=== PATIENT | female | born 1965 | race Caucasian/White ===

== ENCOUNTER 2016-12-10 10:46 | Emergency (ER) | payer SELFPAY ==
[~2016-12-10] VITALS: Ht 170.2 cm; Wt 96.1 kg
[~2016-12-10 10:46] MED LIST: ACET650S13 RC; ALPR0.5T3; ASPI-84; BACL10TA PO; CLCX100C PO; CRS350T PO; CYCL10TA9 PO; DCS100C PO; DICY10CA59 PO; ETHI1TAB16 PO; Estradiol PO; GABA100C PO; HYDR-34 PO; HYDR-3720 PO; HYDR-508 PO; IBUP200C PO; IBUP400T22 PO; Ibuprofen PO; LOPE2TAB7 PO; LRZ1T PO; MELO-198 PO; MELO15TA14; MOBIC; MULT1CAP27 PO; ORPH100T PO; OXYC-12 PO; TIZA6CAP PO; TRAM50TA2 PO; VITA400T9 PO; lidocaine patch
--- NOTE | 2016-12-10 10:55 | ED Fall/Injury ---
General Stated Complaint: FALL LEFT SHOULDER/LOWER BACK PAIN Source: patient Exam Limitations: no limitations History of Present Illness Time seen by provider: 10:55 Initial Comments To ER with reports of a fall and subsequent pain. This occurred one month ago in her bathtub. She landed on her left shoulder and she felt something tear in the anterior left upper arm. She is now unable to flex the arm at the elbow for the past month or move her arm at the shoulder. She also has low back pain that radiates down the right leg. She has a history of lumbar surgery remotely. No loss of bowel or bladder control. No saddle anesthesia. No fevers or chills. Occurred: other (1 month ago) Severity: moderate Injuries/Pain Location: back Context: slipped Loss of Consciousness: no loss of consciousness Allergies and Home Medications Allergies Coded Allergies: NKANo Known Allergies (Unverified Allergy, Unknown, 05/18/14) Home Medications Acetaminophen 500 Mg Tablet, 500 MG PO Q6H, (Reported) Diphenhydramine HCl 25 Mg Capsule, 25 MG PO DAILY, (Reported) Multivitamin 1 Each Tablet, 1 EACH PO DAILY, (Reported) Constitutional: see HPI Eyes: No Symptoms Reported Ears, Nose, Mouth, Throat: no symptoms reported Respiratory: no symptoms reported Cardiovascular: no symptoms reported Genitourinary: no symptoms reported Musculoskeletal: see HPI, back pain Skin: no symptoms reported Psychiatric/Neurological: No Symptoms Reported Past Zmqawcx-Eqdaaa-Rpybfy Hx Patient Social History Recent Foreign Travel: No Contact w/Someone Who Travel: No Immunizations Up To Date Date of Pneumonia Vaccine: Jun 10, 2009 Surgeries HX Surgeries: Yes (NECK FUSION SX, ANT/POST REPAIR WITH HYST.) Respiratory Hx Respiratory Disorders: No Cardiovascular Hx Cardiac Disorders: No Neurological Hx Neurological Disorders: Yes (SPINAL INJURY) Reproductive System Hx Reproductive Disorders: No Genitourinary Hx Genitourinary Disorders: No Gastrointestinal Hx Gastrointestinal Disorders: Yes Gastrointestinal Disorders: Chronic Diarrhea Musculoskeletal Hx Musculoskeletal Disorders: Yes Musculoskeletal Disorders: Arthritis, Chronic Back Pain Endocrine Hx Endocrine Disorders: No HEENT HX ENT Disorders: No Cancer Hx Cancer: No Psychosocial Hx Psychiatric Problems: Yes Behavioral Health Disorders: Anxiety, Depression Integumentary HX Skin/Integumentary Disorder: No Blood Transfusions Hx Blood Disorders: No Family Medical History Family Medial History: Alcoholism 19 FATHER 19 MOTHER G8 SISTER Alzheimer's disease 19 MOTHER Arthritis 19 FATHER 19 MOTHER G8 SISTER Cardiovascular disease 19 FATHER 19 MOTHER G8 SISTER Dementia 19 MOTHER Hypertension 19 FATHER 19 MOTHER G8 SISTER Thyroid disease 19 FATHER No Family History of: AIDS Abdominal aortic aneurysm Jett's disease Asthma Cancer of mouth Cataracts Colon cancer Completed stroke Congenital disease Congenital heart disease Diabetes mellitus Kidney disease Myocardial infarction Parkinson's disease Prostate cancer Psychosocial problem Respiratory disorder Seizure disorder Severe allergy Physical Exam Vital Signs Vital Sign - Last 12Hours 12/10/16 10:57 Temp 98.0 Pulse 116 Resp 20 B/P (MAP) 160/117 Pulse Ox 96 Capillary Refill : General Appearance: WD/WN, no apparent distress HEENT: PERRL/EOMI, normal ENT inspection Neck: non-tender, full range of motion Respiratory: normal breath sounds, no respiratory distress, no accessory muscle use Gastrointestinal: normal bowel sounds, non tender, soft Extremities: other (she is unable to flex the arm at the elbow due to pain over the biceps. There is no bruising over this region or erythema) Neurologic/Psychiatric: alert, normal mood/affect, oriented x 3 Skin: normal color, warm/dry Savannah Coma Score Best Eye Response: (4) Open Spontaneously Best Verbal Response: (5) Oriented Best Motor Response: (6) Obeys Commands Loulou Total: 15 Progress/Results/Core Measures Results/Orders My Orders Orders - LUCAS RASMUSSEN APRN Ketorolac Injection (Toradol Injection) (12/10/16 11:00) Orphenadrine Injection (Norflex Injectio (12/10/16 11:00) Lumbar Spine - 2-3 Views (12/10/16 10:54) Metoprolol Tartrate (Ir) Tab (Lopressor (12/10/16 11:00) Medications Given in ED Current Medications Medications Dose Ordered Sig/Yesenai Route Start Time Stop Time Status Last Admin Dose Admin Ketorolac Tromethamine 60 mg ONCE ONCE IM 12/10/16 11:00 12/10/16 11:01 DC 12/10/16 11:11 60 MG Metoprolol Tartrate 25 mg ONCE ONCE PO 12/10/16 11:00 12/10/16 11:01 DC 12/10/16 11:10 25 MG Orphenadrine Citrate 60 mg ONCE ONCE IM 12/10/16 11:00 12/10/16 11:01 DC 12/10/16 11:10 60 MG Vital Signs/I&O Vital Sign - Last 12Hours 12/10/16 10:57 Temp 98.0 Pulse 116 Resp 20 B/P (MAP) 160/117 Pulse Ox 96 Diagnostic Imaging Diagonstic Imaging: Xray Comments NAME: VIN REARDON [facility] REC#: [id number] PT STATUS: REG ER : 1965 PHYSICIAN: LUCAS RASMUSSEN APRN ADMIT DATE: 12/10/16/ER Draft Date of Exam:12/10/16 LUMBAR SPINE - 2-3 VIEWS 3 views of the lumbar spine. INDICATION: Fall. FINDINGS: The alignment of the posterior spinal line is satisfactory. The vertebral body heights are preserved. There is moderate disc height loss at L3-L4, L4-L5, and L5-S1. No significant posterior osteophytes. There are mild anterior osteophytes seen at multiple levels. SI joints appear unremarkable. There are surgical clips in the upper right side of the abdomen. IMPRESSION: Lower lumbar spine disc degenerative changes. Dictated on workstation # [id number] Dict: 12/10/16 1133 Trans: 12/10/16 1136 LESLY [id number] Interpreted by: NENA SÁNCHEZ MD Electronically signed by: Departure Impression Impression: Primary Impression: Lumbar sprain Additional Impression: Biceps tendon tear Disposition: 01 HOME, SELF-CARE Condition: Stable Departure-Patient Inst. Decision time for Depature: 10:57 Referrals: JYOTHI GOYAL JONATHAN MD IPSEN, BRIAN J MD MCNEMAR, MARK E DO NO,LOCAL PHYSICIAN (PCP) Primary Care Physician NAMITA CISNEROS MD Patient Instructions: Biceps Tendinopathy Add. Discharge Instructions: 1. Call one of the physicians listed to make an appointment to be seen for further evaluation of your arm pain 2. Medication as directed 3. LUCAS RASMUSSEN APRN Dec 10, 2016 10:55
[2016-12-10] MEDS ORDERED: NAPR500T PO (10:59)
[2016-12-10] MEDS ORDERED: flexeril PO (10:59)
[2016-12-10] MEDS ORDERED: ORPHENADRINE 60 MG/2 ML (NORFLEX) AMP IM ONE (11:00)
[2016-12-10] MEDS ORDERED: meTOprolol TARTRATE 25 MG (LOPRESSOR) TABLET PO ONE (11:00)
[2016-12-10] MEDS ORDERED: KETOROLAC 60 MG/2 ML VIAL IM ONE (11:00)
[2016-12-10] MEDS ORDERED: DIPH25CA79 PO (11:06)
[2016-12-10] MEDS ORDERED: ACET-2267 PO (11:06)
[2016-12-10] MEDS ORDERED: MULT-974 PO (11:06)
--- NOTE | 2016-12-10 11:37 | Diagnostic Imaging Report ---
3 views of the lumbar spine. INDICATION: Fall. FINDINGS: The alignment of the posterior spinal line is satisfactory. The vertebral body heights are preserved. There is moderate disc height loss at L3-L4, L4-L5, and L5-S1. No significant posterior osteophytes. There are mild anterior osteophytes seen at multiple levels. SI joints appear unremarkable. There are surgical clips in the upper right side of the abdomen. IMPRESSION: Lower lumbar spine disc degenerative changes. Dictated by: Dictated on workstation # [id number]
[2016-12-10 11:54] VITALS: BP 142/97
--- OUTSIDE RECORDS SUMMARY | 2016-12-13 08:43 | XMS REPORT | Continuity of Care Document ---
Author Author [facility] Organization [facility] Address Unknown Phone Unavailable Allergies Active Description Code Type Severity Reaction Onset Reported/Identified Relationship to Patient Clinical Status Yes NKANo Known Allergies NKA Miscellaneous Allergy Unknown N/ A 05/18/2014 Medications Problems Date Dx Coded Attending Type Code Diagnosis Diagnosed By 12/18/2010 Ot 386.11 12/18/2010 Ot 401.9 12/18/2010 Ot 780.4 11/23/2011 Ot V45.4 11/23/2011 Ot V57.1 11/23/2011 Ot V58.49 11/10/2013 MAN ROJO MD Ot 724.2 11/10/2013 MAN ROJO MD Ot 847.2 11/10/2013 MAN ROJO MD Ot E000.8 11/10/2013 MAN ROJO MD Ot E849.0 11/10/2013 MNA ROJO MD Ot E928.9 02/01/2014 ISADORA MCALLISTER, AUDREY Adamson Ot 786.50 02/01/2014 ISADORA MCALLISTER, AUDREY Adamson Ot 786.59 05/19/2014 MARICARMEN MCALLISTER, DARIUSZ Sampson Ot 614.6 05/19/2014 MARICARMEN MCALLISTER, DARIUSZ Sampson Ot 617.3 05/19/2014 MARICARMEN MCALLISTER, DARIUSZ Sampson Ot 617.4 05/19/2014 MARICARMEN MCALLISTER, DARIUSZ Sampson Ot 617.5 05/19/2014 MARICARMEN MCALLISTER, DARIUSZ Sampson Ot 617.8 05/19/2014 MARICARMEN MCALLISTER, DARIUSZ Sampson Ot 620.0 05/19/2014 MARICARMEN MCALLISTER, DARIUSZ Sampson Ot 620.2 08/22/2014 LAKEISHA MCALLISTER, PERCY Ot 455.0 08/22/2014 LAKEISHA MCALLISTER, PERCY Ot 455.3 08/22/2014 LAKEISHA MCALLISTER, PERCY Ot 562.10 08/27/2014 WINTER HENAO Ot 719.41 08/27/2014 MARICARMEN MCALLISTER, DARIUSZ Sampson Ot V76.12 08/27/2014 MARICARMEN MCALLISTER, DARIUSZ Sampson Ot 285.9 08/27/2014 MARICARMEN MCALLISTER, DARIUSZ Sampson Ot 620.2 08/27/2014 MARICARMEN MCALLISTER, DARIUSZ Sampson Ot 625.9 08/27/2014 MARICARMEN MCALLISTER, DARIUSZ Sampson Ot V72.63 08/27/2014 MARICARMEN MCALLISTER, DARIUSZ Sampson Ot V74.8 08/27/2014 LAKEISHA MCALLISTER, PERCY Ot V72.84 02/01/2015 CLAUDIA DO, SHIRA Baldwin Ot 717.6 02/01/2015 CLAUDIA DO, SHIRA Denny Ot 719.46 03/05/2015 CLAUDIA DO, SHIRA Denny Ot 717.6 03/05/2015 CLAUDIA DO, SHIRA Denny Ot 719.46 04/08/2015 CLAUDIA DO, SHIRA Denny Ot 717.43 04/08/2015 CLAUDIA DO, SHIRA Denny Ot 717.7 06/13/2015 YUSUF BUTLER APRN Ot 611.72 09/02/2015 HETERYUSUF APRN Ot 611.72 09/02/2015 CLAUDIA DO, SHIRA Baldwin Ot 717.6 09/02/2015 CLAUDIA DO, SHIRA Denny Ot 719.46 09/12/2015 CLAUDIA DO, SHIRA Denny Ot 717.6 09/12/2015 CLAUDIA DO, SHIRA Denny Ot 719.46 09/12/2015 HETER YUSUF Kathi BRAGG Ot 611.72 Procedures Results Encounters ACCT No. Visit Date/Time Discharge Status Pt. Type Provider Facility Loc./Unit Complaint [id number] 07/25/2015 14:41:00 2014 23:59:59 CLS Outpatient FRANSISCO MINOR [facility] QUICK [id number] 05/13/2015 14:16:00 2014 23:59:59 CLS Outpatient YUSUF BUTLER APRN [facility] RAD [id number] 04/08/2015 09:20:00 2014 14:40:00 DIS Outpatient SHIRA TAYLOR DO [facility] [id number] 04/03/2015 10:40:00 2014 23:59:59 CLS Outpatient SHIRA TAYLOR DO [facility] PREOP [id number] 02/01/2015 09:29:00 2014 23:59:59 CLS Outpatient SHIRA TAYLOR DO [facility] RAD [id number] 08/22/2014 08:01:00 2013 11:30:00 DIS Outpatient PERCY SUAZO MD [facility] [id number] 08/15/2014 05:49:00 2013 23:59:59 CLS Outpatient PERCY SUAZO MD [facility] PREOP [id number] 05/18/2014 10:56:00 2013 09:45:00 DIS Outpatient DARIUSZ HERNADEZ MD [facility] [id number] 05/15/2014 15:05:00 2013 23:59:59 CLS Outpatient DARIUSZ HERNADEZ MD [facility] RAD [id number] 05/11/2014 10:28:00 2013 23:59:59 CLS Outpatient DARIUSZ HERNADEZ MD [facility] PREOP [id number] 02/01/2014 17:41:00 2013 20:17:00 DIS Emergency AUDREY MUIR MD [facility] ER [id number] 11/10/2013 05:52:00 2013 07:54:00 DIS Emergency MAN ROJO MD [facility] ER [id number] 07/24/2013 15:54:00 2012 23:59:59 CLS Outpatient WINTER HENAO [facility] RAD [id number] 08/03/2016 14:46:00 ACT Outpatient LEISA WAGNER APRN [facility] QUICK LT FOOT XRAY [id number] 07/31/2016 10:43:00 PEN Preadlg HOWARD MD, CHIARA [facility] REHAB LOW BACK PAIN [id number] 11/17/2011 12:57:00 Document Registration [id number] 12/18/2010 15:08:00 Document Registration
== END 2016-12-10 11:54 | disposition home or self-care (01) ==
LOC: EDUNIT# 10:46 → ER 10:49
DX: S33.5XXA Sprain of ligaments of lumbar spine, initial encounter (principal); S46.812A Strain of other muscles, fascia and tendons at shoulder and upper arm level, left arm, initial encounter; M47.816 Spondylosis without myelopathy or radiculopathy, lumbar region; W18.2XXA Fall in (into) shower or empty bathtub, initial encounter; Y92.012 Bathroom of single-family (private) house as the place of occurrence of the external cause; Y99.8 Other external cause status
CPT/HCPCS: 72100; 96372; 99281

== ENCOUNTER → 2017-08-09 | Outpatient (CLI) | payer OTHER ==
[~2017-08-09] MED LIST changes: +ACET-2267 PO; +DIPH25CA79 PO; +MULT-974 PO; +NAPR500T PO; +flexeril PO
--- NOTE | 2017-08-11 09:44 | Diagnostic Imaging Report ---
EXAMINATION: Bilateral screening mammogram 2D views with tomosynthesis. The current study was also evaluated with a Computer Aided Detection (CAD) system. INDICATION: Screening. PERSONAL HISTORY: No current complaints stated on the questionnaire. COMPARISON: 05/13/2015. FINDINGS: The breasts are composed of heterogeneously dense parenchyma which may decrease mammographic sensitivity. Benign-appearing calcifications are seen. Allowing for technique and positional differences, no suspicious change is seen. IMPRESSION: No significant change. ACR BI-RADS Category 2: Benign findings. Result letter will be mailed to the patient. Note: At least 10% of breast cancer is not imaged by mammography. Dictated by: Dictated on workstation # [id number]
== END ==
LOC: RAD 11:34
PROVIDERS: ATTEND Nurse Practitioner Family
DX: Z12.31 Encounter for screening mammogram for malignant neoplasm of breast (principal)
CPT/HCPCS: 77067

== ENCOUNTER 2018-05-29 13:20 | Emergency (ER) | payer OTHER ==
[~2018-05-29] VITALS: Ht 172.7 cm; Wt 90.7 kg
[~2018-05-29 13:20] MED LIST changes: +NAPR-1071 PO; -NAPR500T PO
--- OUTSIDE RECORDS SUMMARY | 2018-05-29 13:26 | XMS REPORT ---
Author Author DOROTHY CONNOLLY Organization [facility] Address [address] 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 Active 445365234 Problem Anxiety F41.9 Active 89262940 Problem Trigger ring finger of right hand M65.341 Active 500731919 Problem Essential hypertension I10 Active 62246449 Problem Breast mass, left N63 Active 90676824566127736 Problem BMI 34.0-34.9,adult Z68.34 Active 297625531 Problem Chronic gastritis without bleeding, unspecified gastritis type K29.50 Active 8197212 ALLERGIES No Known Allergies ENCOUNTERS Encounter Location Date Diagnosis [facility] [address] [phone] Jun, [facility] [id number] [place] [phone] Apr, Capsulitis of right foot M77.51 and Right foot pain M79.671 [facility] [id number] [place] [address] Apr, Trigger ring finger of right hand M65.341 and Trigger middle finger of right hand M65.331 [facility] [id number] [place] [address] Feb, Anxiety F41.9 and Trigger ring finger of right hand M65.341 [facility] [id number] [place] [id number] January, Dental examination Z01.20 and Dental caries K02.9 [facility] [id number] [place] [address] January, [place] [address] [address] January, Right foot pain M79.671 [place] [id number] [place] [address] Oct, Post-traumatic osteoarthritis, 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 ; BMI 34.0-34.9,adult Z68.34 and Breast mass, left N63 [place] [address] [address] Jul, [place] [address] [address] Jul, Screening breast examination Z12.31 [facility] [address] [id number] Jun, Dental examination Z01.20 [place] [id number] [place] [address] May, Chronic gastritis without bleeding, unspecified gastritis type K29.50 and Secondary multiple arthritis M15.3 [place] [id number] [place] [address] May, Chronic gastritis without bleeding, unspecified gastritis type K29.50 ; Essential hypertension I10 ; Breast mass, left N63 ; Post- traumatic osteoarthritis, 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 and Secondary multiple arthritis M15.3 [place] [id number] [place] [phone] May, [facility] [address] [phone] January, Abscess L02.91 IMMUNIZATIONS No Known Immunizations SOCIAL HISTORY Never Assessed REASON FOR VISIT Anxiety with stress and blood pressure. PT also has concerns with cysts in the palm on her hand-Cades MA PLAN OF CARE Activity Details Follow Up 4 Weeks Reason:anxiety VITAL SIGNS Height 67.5 in 2018-03-14 Weight 223.3 lbs 2018-03-14 Temperature 98.3 degrees Fahrenheit 2018-03-14 Heart Rate 82 bpm 2018-03-14 Respiratory Rate 20 2018-03-14 BMI 34.45 kg/m2 2018-03-14 Blood pressure systolic 122 mmHg 2018-03-14 Blood pressure diastolic 80 mmHg 2018-03-14 MEDICATIONS Medication Instructions Dosage Frequency Start Date End Date Duration Status ibuprofen 1 tab Not-Taking Cymbalta 30 MG Orally Once a day; start 1 tab daily x 7 days 2 capsule Feb, 30 day(s) Active Meloxicam 15 mg Orally Once a day 1 tablet 24h Oct, Apr, 90 days Active tylenol 1 tab Not-Taking Advil Active Melatonin 10 mg by oral route at bedtime 1 tablet Active Multivitamin Adult - Not-Taking Ranitidine Acid Surgical 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
--- OUTSIDE RECORDS SUMMARY | 2018-05-29 13:26 | XMS REPORT ---
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 189773533 Problem Anxiety F41.9 Active 55455422 Problem Trigger ring finger of right hand M65.341 Active 687654360 Problem Essential hypertension I10 Active 70380339 Problem Breast mass, left N63 Active 41533874212338325 Problem BMI 34.0-34.9,adult Z68.34 Active 305259157 Problem Chronic gastritis without bleeding, unspecified gastritis type K29.50 Active 3240436 ALLERGIES No Known Allergies ENCOUNTERS Encounter Location Date Diagnosis [facility] [id number] [place] [address] Apr, [facility] [id number] [place] [address] Apr, [facility] [id number] [place] [address] Feb, Anxiety F41.9 and Trigger ring finger of right hand M65.341 [facility] [id number] [place] [phone] January, Dental examination Z01.20 and Dental caries K02.9 [facility] [id number] [place] [address] January, [facility] [address] [address] January, Right foot pain M79.671 [facility] [id number] [place] [address] 28 Oct, 2017 Post-traumatic osteoarthritis, 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 ; BMI 34.0-34.9,adult Z68.34 and Breast mass, left N63 [facility] [id number] [place] [address] Jul, 2017 [place] [address] [address] 10 Jul, 2017 Screening breast examination Z12.31 [facility] [address] [id number] Jun, Dental examination Z01.20 [place] [address] [address] 22 May, 2017 Chronic gastritis without bleeding, unspecified gastritis type K29.50 and Secondary multiple arthritis M15.3 [place] [address] [address] 21 May, 2017 Chronic gastritis without bleeding, unspecified gastritis type K29.50 ; Essential hypertension I10 ; Breast mass, left N63 ; Post- traumatic osteoarthritis, 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 and Secondary multiple arthritis M15.3 [place] [id number] [place] [address] May, [facility] [id number] [place] [address] January, Abscess L02.91 IMMUNIZATIONS No Known Immunizations SOCIAL HISTORY Never Assessed REASON FOR VISIT konrad PLAN OF CARE VITAL SIGNS MEDICATIONS Medication Instructions Dosage Frequency Start Date End Date Duration Status Advil Active Multivitamin Adult - Not-Taking ibuprofen 1 tab Unknown tylenol 1 tab Unknown Meloxicam 15 mg Orally Once a day 1 tablet 24h Oct, Apr, 90 days Active Melatonin Active RESULTS No Results PROCEDURES Procedure Date Ordered Result Body Site LTD ORAL EVALUATION - PROBLEM FOCUS February 15, 2018 INTRAORL-PERIAPICAL 1 FILM 70605 February 15, 2018 SURG REMOVAL ERUPTED TOOTH February 15, 2018 BITEWING - SINGLE FILM February 15, 2018 INSTRUCTIONS MEDICATIONS ADMINISTERED No Known Medications MEDICAL [...]
--- OUTSIDE RECORDS SUMMARY | 2018-05-29 13:27 | XMS REPORT ---
Author Author DOROTHY CONNOLLY Organization [facility] Address [address] 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 880723111 Problem Anxiety F41.9 Active 11818740 Problem Trigger ring finger of right hand M65.341 Active 970732778 Problem Essential hypertension I10 Active 44979695 Problem Breast mass, left N63 Active 01309573190116416 Problem BMI 34.0-34.9,adult Z68.34 Active 692315560 Problem Chronic gastritis without bleeding, unspecified gastritis type K29.50 Active 9392895 ALLERGIES No Known Allergies ENCOUNTERS Encounter Location Date Diagnosis [place] [address] [address] Apr, [facility] [id number] [place] [address] Apr, [facility] [id number] [place] [address] Feb, Anxiety F41.9 and Trigger ring finger of right hand M65.341 [facility] [address] [place] [address] [id number] [place] [id number] January, Dental examination Z01.20 and Dental caries K02.9 [facility] [address] [place] [address] [id number] [place] [address] January, [facility] [address] [address] January, Right foot pain M79.671 [place] [address] [place] [address] Oct, Post-traumatic osteoarthritis, 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 ; BMI 34.0-34.9,adult Z68.34 and Breast mass, left N63 [facility] [id number] [place] [address] 24 Jul, 2017 [facility] [address] [address] 10 Jul, 2017 Screening breast examination Z12.31 [facility] [address] [id number] 27 Jun, 2017 Dental examination Z01.20 [place] [address] [address] [id number] [place] [address] 25083- [address] 22 May, 2017 Chronic gastritis without bleeding, unspecified gastritis type K29.50 and Secondary multiple arthritis M15.3 [place] [address] [place] [id number] [place] [address] May, Chronic gastritis without bleeding, unspecified gastritis type K29.50 ; Essential hypertension I10 ; Breast mass, left N63 ; Post- traumatic osteoarthritis, 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 and Secondary multiple arthritis M15.3 [place] [address] [place] [id number] [place] [address] 650[address]- [address] May, [facility] [address] [place] [address] January, Abscess L02.91 IMMUNIZATIONS No Known Immunizations SOCIAL HISTORY Never Assessed REASON FOR VISIT Arthritis / BP and cancer screening f/u-Madelin [place] PLAN OF CARE Activity Details Follow Up 1 Year Reason: VITAL SIGNS Height 67.5 in 2017-11-17 Weight 222.1 lbs 2017-11-17 Temperature 98.4 degrees Fahrenheit 2017-11-17 Heart Rate 82 bpm 2017-11-17 Respiratory Rate 18 2017-11-17 BMI 34.27 kg/m2 2017-11-17 Blood pressure systolic 124 mmHg 2017-11-17 Blood pressure diastolic 82 mmHg 2017-11-17 MEDICATIONS Medication Instructions Dosage Frequency Start Date End Date Duration Status Meloxicam 15 mg Orally Once a day 1 tablet 24h Oct, Apr, 90 days Active Multivitamin Adult - Active RESULTS No Results PROCEDURES No Known [...]
--- OUTSIDE RECORDS SUMMARY | 2018-05-29 13:27 | XMS REPORT ---
Author Author DOROTHY CONNOLLY Organization [facility] Address [address] [place] [address] Care Team Providers Care Slab Lifting Supervisor Name Role Phone DOROTHY CONNOLLY Unavailable PROBLEMS Type Condition ICD9-CM Code JRM68-QZ Code Onset Dates Condition Status SNOMED Code Problem BMI 34.0-34.9,adult Z68.34 Active 268910898 Problem Chronic gastritis without bleeding, unspecified gastritis type K29.50 Active 2810496 Problem Essential hypertension I10 Active 52107615 Problem Breast mass, left N63 Active 51409671481060187 Problem Secondary multiple arthritis M15.3 Active 817687156 Problem Post-traumatic osteoarthritis, 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 Active 821820409 ALLERGIES No Known Allergies ENCOUNTERS Encounter Location Date Diagnosis [facility] [address] [address] 28 Oct, 2017 Post-traumatic osteoarthritis, 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 ; BMI 34.0-34.9,adult Z68.34 and Breast mass, left N63 [facility] [id number] [place] [address]258- [address] 24 Jul, 2017 [facility] [id number] [place] [address] 7[address]- 130[address] Jul, Screening breast examination Z12.31 [facility] [address] [id number] 27 Jun, 2017 Dental examination Z01.20 [facility] [address] [address] 22 May, 2017 Chronic gastritis without bleeding, unspecified gastritis type K29.50 and Secondary multiple arthritis M15.3 [facility] [address] [address] May, Chronic gastritis without bleeding, unspecified gastritis type K29.50 ; Essential hypertension I10 ; Breast mass, left N63 ; Post- traumatic osteoarthritis, 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 and Secondary multiple arthritis M15.3 [facility] [address] [facility] [id number] [place] [address] May, [facility] [address] [facility] [id number] [place] [address] January, Abscess L02.91 IMMUNIZATIONS No Known Immunizations SOCIAL HISTORY Never Assessed REASON FOR VISIT Establish Care, pt. states she has extensive spinal issues, surgeries upper and lower, pt. states all her joints hurt and wants to know how to regulate this, pt. states she had knee surgery to remove mass, pt. states sister collapsed a few months ago and was diagnosed with leukemia and she is having the exact same symptoms. she states she would like to be tested for due to the family hx of cancer and is requesting blood work, pt. states they always find a lump at 8: 00 on left breast and goes for routine checks and also chest pain in the same spot and is always there, pt. states she has been taking half her boyfriends percocet every now and then when the pain is bad enough, backaid max and mid nite dietary supplement are other OTC medication she is using, ALONZO Antonio PLAN OF CARE Activity Details Follow Up 3 Months Reason:arthritis VITAL SIGNS Height 67.5 in 2017-06-10 Weight 214.0 lbs 2017-06-10 Temperature 98.6 degrees Fahrenheit 2017-06-10 Heart Rate 88 bpm 2017-06-10 Respiratory Rate 22 2017-06-10 BMI 33.02 kg/m2 2017-06-10 Blood pressure systolic 148 mmHg 2017-06-10 Blood pressure diastolic 97 mmHg 2017-06-10 MEDICATIONS Medication Instructions Dosage Frequency Start Date End Date Duration Status Celebrex 200 mg Orally Once a day 1 capsule with food 24h May, Aug, 90 days Active Multivitamin Adult - Active [...]
--- OUTSIDE RECORDS SUMMARY | 2018-05-29 13:27 | XMS REPORT ---
Author Author DOROTHY CONNOLLY Organization [facility] Address [address] [place] [address] Care Team Providers Care Blasting Entry Specialist Name Role Phone DOROTHY CONNOLLY Unavailable PROBLEMS Type Condition ICD9-CM Code WML02-PZ Code Onset Dates Condition Status SNOMED Code Problem BMI 34.0-34.9,adult Z68.34 Active 529731322 Problem Chronic gastritis without bleeding, unspecified gastritis type K29.50 Active 2015180 Problem Essential hypertension I10 Active 15596896 Problem Breast mass, left N63 Active 83630175614820135 Problem Secondary multiple arthritis M15.3 Active 379914861 Problem Post-traumatic osteoarthritis, 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 Active 487341626 ALLERGIES No Information ENCOUNTERS Encounter Location Date Diagnosis [facility] [id number] [place] [address] Oct, Post-traumatic osteoarthritis, 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 ; BMI 34.0-34.9,adult Z68.34 and Breast mass, left N63 [facility] [id number] [place] [address] 24 Jul, 2017 [facility] [address] [id number] [place] [address]- [address] Jul, Screening breast examination Z12.31 [facility] [address] [id number] 27 Jun, 2017 Dental examination Z01.20 [facility] [address] [address] 22 May, 2017 Chronic gastritis without bleeding, unspecified gastritis type K29.50 and Secondary multiple arthritis M15.3 [facility] [address] [address] May, Chronic gastritis without bleeding, unspecified gastritis type K29.50 ; Essential hypertension I10 ; Breast mass, left N63 ; Post- traumatic osteoarthritis, 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 and Secondary multiple arthritis M15.3 [facility] [address] [facility] [id number] [place] [address] May, [facility] [address] [facility] [id number] [place] [address] January, Abscess L02.91 IMMUNIZATIONS No Known Immunizations SOCIAL HISTORY Never Assessed REASON FOR VISIT Lab (walk-in)--[facility] OF CARE VITAL SIGNS MEDICATIONS No Known Medications RESULTS Name Result Date Reference Range TSH 2017-06-11 TSH 0.948 0.450-4.500 CBC 2017-06-11 WBC 5.6 3.4-10.8 RBC 4.83 3.77-5.28 Hemoglobin 14.1 11.1-15.9 Hematocrit 42.8 34.0-46.6 MCV 89 79-97 MCH 29.2 26.6-33.0 MCHC 32.9 31.5-35.7 RDW 13.9 12.3-15.4 Platelets 263 150-379 Neutrophils 69 Lymphs 21 Monocytes 7 Eos 3 Basos 0 Neutrophils (Absolute) 3.8 1.4-7.0 Lymphs (Absolute) 1.2 0.7-3.1 Monocytes(Absolute) 0.4 0.1-0.9 Eos (Absolute) 0.2 0.0-0.4 Baso (Absolute) 0.0 0.0-0.2 Immature Granulocytes 0 Immature Grans (Abs) 0.0 0.0-0.1 ESR/SED RATE 2017-06-11 Sedimentation Rate-Westergren 4 0-40 CRP 2017-06-11 C-Reactive Protein, Quant 2.0 0.0-4.9 LIPID PANEL 2017-06-11 Cholesterol, Total 232 100-199 Triglycerides 206 0-149 HDL Cholesterol 56 >39 VLDL Cholesterol Edgardo 41 5-40 LDL Cholesterol Calc 135 0-99 CMP 2017-06-11 Glucose, Serum 92 65-99 BUN 17 6-24 Creatinine, Serum 0.69 0.57-1.00 eGFR If NonAfricn Am 101 >59 eGFR If Africn Am 117 >59 BUN/Creatinine Ratio 25 9-23 Sodium, Serum 142 134-144 Potassium, Serum 4.5 3.5-5.2 Chloride, Serum 102 96-106 Carbon Dioxide, Total 24 18-29 Calcium, Serum 9.7 8.7-10.2 Protein, Total, Serum 7.1 6.0-8.5 Albumin, Serum 4.5 3.5-5.5 Globulin, Total 2.6 1.5-4.5 A/G Ratio 1.7 1.2-2.2 Bilirubin, Total 0.3 0.0-1.2 Alkaline Phosphatase, S 98 39-117 AST (SGOT) 15 0-40 ALT (SGPT) 22 0-32 PROCEDURES Procedure Date Ordered Result Body Site ASSAY THYROID STIM HORMONE Jun 11, 2017 COMPLETE CBC W/AUTO DIFF WBC Jun 11, 2017 VENIPUNCT, ROUTINE* Jun 11, 2017 C-REACTIVE PROTEIN Jun 11, 2017 RBC SED RATE, AUTOMATED Jun 11, 2017 COMPREHEN METABOLIC PANEL Jun 11, 2017 LIPID PANEL Jun 11, 2017 INSTRUCTIONS MEDICATIONS ADMINISTERED No Known Medications MEDICAL [...]
--- OUTSIDE RECORDS SUMMARY | 2018-05-29 13:27 | XMS REPORT ---
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 Active 497746990 Problem Anxiety F41.9 Active 97479919 Problem Trigger ring finger of right hand M65.341 Active 707993321 Problem Essential hypertension I10 Active 54032575 Problem Breast mass, left N63 Active 82505519453931715 Problem BMI 34.0-34.9,adult Z68.34 Active 483005545 Problem Chronic gastritis without bleeding, unspecified gastritis type K29.50 Active 4165321 ALLERGIES No Known Allergies ENCOUNTERS Encounter Location Date Diagnosis [facility] [address] [address] Apr, [facility] [id number] [place] [address]- [address] Apr, [facility] [address] [id number] [place] [address] 8[address]- [address] Feb, Anxiety F41.9 and Trigger ring finger of right hand M65.341 [facility] [address] [id number] [place] [id number] January, Dental examination Z01.20 and Dental caries K02.9 [facility] [id number] [place] [address]- [address] January, [facility] [id number] [place] [address] 42[address]- [address] January, Right foot pain M79.671 [place] [address] [place] [address] [id number] [place] [address]36- [address] 28 Oct, 2017 Post-traumatic osteoarthritis, 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 ; BMI 34.0-34.9,adult Z68.34 and Breast mass, left N63 [place] [address] [place] [address] [id number] [place] [address] 22379- [address]71 24 Jul, 2017 [place] [address] [address] 10 Jul, 2017 Screening breast examination Z12.31 [facility] [address] [id number] Jun, Dental examination Z01.20 [place] [address] [address] 22 May, 2017 Chronic gastritis without bleeding, unspecified gastritis type K29.50 and Secondary multiple arthritis M15.3 [place] [address] [address] May, Chronic gastritis without bleeding, unspecified gastritis type K29.50 ; Essential hypertension I10 ; Breast mass, left N63 ; Post- traumatic osteoarthritis, 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 and Secondary multiple arthritis M15.3 [place] [address] [id number] [place] [address]- [address] May, [facility] [address] [address] January, Abscess L02.91 IMMUNIZATIONS No Known Immunizations SOCIAL HISTORY Never Assessed REASON FOR VISIT Pain (acute) foot-Tmcdonald, big knot on right big toe. Cold makes it feel better. Shooting paints on right side of the foot. Have had this problem since 01-23-18 PLAN OF CARE Activity Details Follow Up prn Reason: VITAL SIGNS Height 67.5 in 2018-02-03 Weight 227.1 lbs 2018-02-03 Temperature 98.1 degrees Fahrenheit 2018-02-03 Heart Rate 88 bpm 2018-02-03 Respiratory Rate 18 2018-02-03 BMI 35.04 kg/m2 2018-02-03 Blood pressure systolic 150 mmHg 2018-02-03 Blood pressure diastolic 88 mmHg 2018-02-03 MEDICATIONS Medication Instructions Dosage Frequency Start Date End Date Duration Status Multivitamin Adult - Active ibuprofen 1 tab Not-Taking tylenol 1 tab Not-Taking Meloxicam 15 mg Orally Once a day 1 tablet 24h Oct, Apr, 90 days Active RESULTS Name Result Date Reference Range Xray : Foot, Right 3 views (IN HOUSE) 2018-02-03 PROCEDURES Procedure Date Ordered Result Body Site X-RAY EXAM OF FOOT February 03, 2018 INSTRUCTIONS MEDICATIONS ADMINISTERED No Known Medications [...]
--- OUTSIDE RECORDS SUMMARY | 2018-05-29 13:27 | XMS REPORT ---
Author Author DOROTHY CONNOLLY Organization [facility] Address [address] 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 Active 484071428 Problem Post-traumatic osteoarthritis, 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 Active 676015224 ALLERGIES No Known Allergies ENCOUNTERS Encounter Location Date Diagnosis [facility] [address] [address] 28 Oct, 2017 Post-traumatic osteoarthritis, 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 ; BMI 34.0-34.9,adult Z68.34 and Breast mass, left N63 [facility] [address] [id number] [place] [address] 24 Jul, 2017 [facility] [id number] [place] [address]- [address] Jul, Screening breast examination Z12.31 [facility] [address] [id number] 27 Jun, 2017 Dental examination Z01.20 [facility] [address] [address] 22 May, 2017 Chronic gastritis without bleeding, unspecified gastritis type K29.50 and Secondary multiple arthritis M15.3 [facility] [address] [address] May, Chronic gastritis without bleeding, unspecified gastritis type K29.50 ; Essential hypertension I10 ; Breast mass, left N63 ; Post- traumatic osteoarthritis, 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 and Secondary multiple arthritis M15.3 [facility] [address] [facility] [id number] [place] [address] May, [facility] [address] [facility] [id number] [place] [address] January, Abscess L02.91 IMMUNIZATIONS No Known Immunizations SOCIAL HISTORY Never Assessed REASON FOR VISIT [facility] Obtained PLAN OF CARE VITAL SIGNS MEDICATIONS Medication Instructions Dosage Frequency Start Date End Date Duration Status Multivitamin Adult - Active Ibuprofen 200 MG Orally every 6 hrs 1 tablet with food or milk as needed 6h Active Benadryl Allergy 25 MG Orally Once a day at hs 1 tablet as needed Active RESULTS No Results PROCEDURES No Known [...]
--- OUTSIDE RECORDS SUMMARY | 2018-05-29 13:27 | XMS REPORT ---
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 Active 565481941 Problem Post-traumatic osteoarthritis, 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 Active 451372913 ALLERGIES No Known Allergies ENCOUNTERS Encounter Location Date Diagnosis [facility] [id number] [place] [address] January, [facility] [address] [address] 17 Jan, 2018 Right foot pain M79.671 [facility] [id number] [place] [address]- [address] 28 Oct, 2017 Post-traumatic osteoarthritis, 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 ; BMI 34.0-34.9,adult Z68.34 and Breast mass, left N63 [facility] [id number] [place] [address]- [address] 24 Jul, 2017 [facility] [address] [address] 10 Jul, 2017 Screening breast examination Z12.31 [facility] [id number] [place] [id number] 27 Jun, 2017 Dental examination Z01.20 [facility] [address] [address] May, Chronic gastritis without bleeding, unspecified gastritis type K29.50 and Secondary multiple arthritis M15.3 [facility] [address] [facility] [id number] [address] May, Chronic gastritis without bleeding, unspecified gastritis type K29.50 ; Essential hypertension I10 ; Breast mass, left N63 ; Post- traumatic osteoarthritis, 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 and Secondary multiple arthritis M15.3 [facility] [address] [facility] [id number] [address] May, [facility] [address] [facility] [id number] [address] January, Abscess L02.91 IMMUNIZATIONS No Known Immunizations SOCIAL HISTORY Never Assessed REASON FOR VISIT [facility] PLAN OF CARE VITAL SIGNS Height 67.5 in 2017-07-16 Blood pressure systolic 124 mmHg 2017-07-16 Blood pressure diastolic 87 mmHg 2017-07-16 MEDICATIONS Medication Instructions Dosage Frequency Start Date End Date Duration Status Multivitamin Adult - Active Celebrex 200 mg Orally Once a day 1 capsule with food 24h May, Aug, 90 days Active RESULTS No Results PROCEDURES Procedure Date Ordered Result Body Site LTD ORAL EVALUATION - PROBLEM FOCUS Jul 20, 2017 INTRAORL-PERIAPICAL 1 FILM 10820 Jul 16, 2017 INSTRUCTIONS MEDICATIONS ADMINISTERED No Known Medications [...]
--- OUTSIDE RECORDS SUMMARY | 2018-05-29 13:27 | XMS REPORT ---
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 Active 808483826 Problem Post-traumatic osteoarthritis, 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 Active 891500925 Problem Anxiety F41.9 Active 47923962 Problem Trigger ring finger of right hand M65.341 Active 153920909 Problem Essential hypertension I10 Active 64589405 Problem Breast mass, left N63 Active 88492452005899403 Problem BMI 34.0-34.9,adult Z68.34 Active 212879272 Problem Chronic gastritis without bleeding, unspecified gastritis type K29.50 Active 7251710 ALLERGIES No Information ENCOUNTERS Encounter Location Date Diagnosis [place] [id number] [place] [phone] Apr, [facility] [id number] [place] [phone] Apr, [facility] [id number] [place] [address] [phone] Feb, Anxiety F41.9 and Trigger ring finger of right hand M65.341 [facility] [id number] [place] [phone] January, Dental examination Z01.20 and Dental caries K02.9 [facility] [id number] [place] [phone] January, [facility] [id number] [place] [address] 39704[address] January, Right foot pain M79.671 [place] [address] [address] Oct, Post-traumatic osteoarthritis, 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 ; BMI 34.0-34.9,adult Z68.34 and Breast mass, left N63 [facility] [id number] [place] [address] [phone] Jul, [place] [address] [phone] Jul, Screening breast examination Z12.31 [facility] [address] [phone] Jun, Dental examination Z01.20 [place] [id number] [place] [address] [phone] 22 May, 2017 Chronic gastritis without bleeding, unspecified gastritis type K29.50 and Secondary multiple arthritis M15.3 [place] [id number] [place] [address] [phone] May, Chronic gastritis without bleeding, unspecified gastritis type K29.50 ; Essential hypertension I10 ; Breast mass, left N63 ; Post- traumatic osteoarthritis, 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 and Secondary multiple arthritis M15.3 [place] [id number] [place] [address] [phone] May, [facility] [id number] [place] [phone] January, Abscess L02.91 IMMUNIZATIONS No Known Immunizations SOCIAL HISTORY Never Assessed REASON FOR VISIT requesting return call PLAN OF CARE VITAL SIGNS MEDICATIONS Unknown Medications RESULTS No Results PROCEDURES No Known procedures [...]
--- OUTSIDE RECORDS SUMMARY | 2018-05-29 13:28 | XMS REPORT | Continuity of Care Document ---
Author Author [facility] Organization [facility] Address Unknown Phone Unavailable Allergies Active Description Code Type Severity Reaction Onset Reported/Identified Relationship to Patient Clinical Status Yes NKANo Known Allergies NKA Miscellaneous Allergy Unknown N/A 05/18/2014 Medications There is no data. Problems Date Dx Coded Attending Type Code Diagnosis Diagnosed By 12/18/2010 Ot 386.11 12/18/2010 Ot 401.9 12/18/2010 Ot 780.4 11/23/2011 Ot V45.4 ARTHRODESIS STATUS 11/23/2011 Ot V57.1 PHYSICAL THERAPY NEC 11/23/2011 Ot V58.49 OTHER SPECIFIED AFTERCARE FOLLOWING SURG 11/10/2013 MAN ROJO MD Ot 724.2 LUMBAGO 11/10/2013 MAN ROJO MD Ot 847.2 SPRAIN LUMBAR REGION 11/10/2013 MAN ROJO MD Ot E000.8 OTHER EXTERNAL CAUSE STATUS 11/10/2013 MAN ROJO MD Ot E849.0 ACCIDENT IN HOME 11/10/2013 MAN ROJO MD Ot E928.9 ACCIDENT NOS 02/01/2014 AUDREY MUIR MD Ot 786.50 CHEST PAIN NOS 02/01/2014 AUDREY MUIR MD Ot 786.59 CHEST PAIN NEC 05/19/2014 DARIUSZ HERNADEZ MD Ot 614.6 FEM PELVIC PERITON ADH-POST-OP/INF 05/19/2014 DARIUSZ HERNADEZ MD Ot 617.3 PELV PERIT ENDOMETRIOSIS 05/19/2014 DARIUSZ HERNADEZ MD Ot 617.4 VAGINAL ENDOMETRIOSIS 05/19/2014 DARIUSZ HERNADEZ MD Ot 617.5 INTESTINAL ENDOMETRIOSIS 05/19/2014 DARIUSZ HERNADEZ MD Ot 617.8 ENDOMETRIOSIS NEC 05/19/2014 DARIUSZ HERNADEZ MD Ot 620.0 FOLLICULAR CYST OF OVARY 05/19/2014 MARICARMEN MCALLISTER, DARIUSZ Sampson Ot 620.2 OVARIAN CYST NEC/NOS 08/22/2014 LAKEISHA MCALLISTER, PERCY Ot 455.0 INT HEMORRHOID W/O COMPL 08/22/2014 LAKEISHA MCALLISTER, PERCY Ot 455.3 EXT HEMORRHOID W/O COMPL 08/22/2014 LAKEISHA MCALLISTER, PERCY Ot 562.10 DIVERTICULOSIS COLON (W/O MENT OF HEMORR 08/27/2014 WINTER HENAO Ot 719.41 08/27/2014 MARICARMEN MCALLISTER, DARIUSZ Sampson Ot V76.12 08/27/2014 MARICARMEN MCALLISTER, DARIUSZ Sampson Ot 285.9 08/27/2014 MARICARMEN MCALLISTER, DARIUSZ Sampson Ot 620.2 08/27/2014 MARICARMEN MCALLISTER, DARIUSZ Sampson Ot 625.9 08/27/2014 MARICARMEN MCALLISTER, DARIUSZ Sampson Ot V72.63 08/27/2014 MARICARMEN MCALLISTER, DARIUSZ Sampson Ot V74.8 08/27/2014 PERCY SUAZO MD Ot V72.84 02/01/2015 CLAUDIA DO, SHIRA F Ot 717.6 02/01/2015 CLAUDIA DO, SHIRA Denny Ot 719.46 03/05/2015 CLAUDIA DO, SHIRA F Ot 717.6 03/05/2015 CLAUDIA DO, SHIRA Denny Ot 719.46 04/08/2015 CLAUDIA DO, SHIRA Denny Ot 717.43 DERANG POST LAT MENISCUS 04/08/2015 CLAUDIA DO, SHIRA F Ot 717.7 CHONDROMALACIA PATELLAE 06/13/2015 YUSUF BUTLER REACTOR OPERATOR Ot 611.72 09/02/2015 HETERYUSUF REACTOR OPERATOR Ot 611.72 09/02/2015 CLAUDIA DO, SHIRA F Ot 717.6 09/02/2015 CLAUDIA DO, SHIRA F Ot 719.46 09/12/2015 CLAUDIA DO, SHIRA F Ot 717.6 09/12/2015 CLAUDIA DO, SHIRA F Ot 719.46 09/12/2015 YUSUF BUTLER REACTOR OPERATOR Ot 611.72 12/10/2016 LUCAS RASMUSSEN REACTOR OPERATOR Ot M25.512 PAIN IN LEFT SHOULDER 12/10/2016 LUCAS RASMUSSEN APRN Ot M47.816 SPONDYLOSIS W/O MYELOPATHY OR RADICULOPA 12/10/2016 LUCAS RASMUSSEN APRN Ot S33.5XXA SPRAIN OF LIGAMENTS OF LUMBAR SPINE, INI 12/10/2016 LUCAS RASMUSSEN APRN Ot S46.812A STRAIN OF MUSC/FASC/TEND AT SHLDR/UP ARM 12/10/2016 LUCAS RASMUSSEN APRN Ot W18.2XXA FALL IN (INTO) SHOWER OR EMPTY BATHTUB, 12/10/2016 LUCAS RASMUSSEN APRN Ot Y92.012 BATHROOM OF SINGLE-FAMILY (PRIVATE) HOUS 12/10/2016 LUCAS RASMUSSEN APRN Ot Y99.8 OTHER EXTERNAL CAUSE STATUS 12/10/2016 WINTER HENAO Ot 719.41 JOINT PAIN-SHLDER 12/10/2016 DARIUSZ HENRADEZ MD, Ot V76.12 OTH SCREEN MAMMO-MALIGN NEOPLASM OF SOFIA 12/10/2016 DARIUSZ HERNADEZ MD Ot 285.9 ANEMIA NOS 12/10/2016 DARIUSZ HERNADEZ MD Ot 620.2 OVARIAN CYST NEC/NOS 12/10/2016 DARIUSZ HERNADEZ MD Ot 625.9 FEM GENITAL SYMPTOMS NOS 12/10/2016 DARIUSZ HERNADEZ MD Ot V72.63 PRE-PROCEDURAL LABORATORY EXAMINATION 12/10/2016 DARIUSZ HERNADEZ MD Ot V74.8 SCREEN-BACTERIAL DIS NEC 12/10/2016 LAKEISHA MCALLISTER, PERCY Ot V72.84 EXAM PRE-OPERATIVE NOS 12/10/2016 SHIRA TAYLOR DO Ot 717.6 LOOSE BODY IN KNEE 12/10/2016 CLAUDIASHIRA BARBOZA DO Ot 719.46 JOINT PAIN-L/LEG 12/10/2016 SHIRA TAYLOR DO Ot 715.96 OSTEOARTHROS NOS-L/LEG 12/10/2016 SHIRA TAYLOR DO Ot V72.84 EXAM PRE-OPERATIVE NOS 12/10/2016 SHIRA TAYLOR DO Ot V74.8 SCREEN-BACTERIAL DIS NEC 12/10/2016 YUSUF BUTLER APRN Ot 611.72 LUMP OR MASS IN BREAST 12/11/2016 LUCAS RASMUSSEN APRN Ot M25.512 PAIN IN LEFT SHOULDER 12/11/2016 LUCAS RASMUSSEN APRN Ot M47.816 SPONDYLOSIS W/O MYELOPATHY OR RADICULOPA 12/11/2016 LUCAS RASMUSSEN APRN Ot S33.5XXA SPRAIN OF LIGAMENTS OF LUMBAR SPINE, INI 12/11/2016 LUCAS RASMUSSEN APRN Ot S46.812A STRAIN OF MUSC/FASC/TEND AT SHLDR/UP ARM 12/11/2016 LUCAS RASMUSSEN APRN Ot W18.2XXA FALL IN (INTO) SHOWER OR EMPTY BATHTUB, 12/11/2016 LUCAS RASMUSSEN APRN Ot Y92.012 BATHROOM OF SINGLE-FAMILY (PRIVATE) HOUS 12/11/2016 LUCAS RASMUSSEN APRN Ot Y99.8 OTHER EXTERNAL CAUSE STATUS 12/12/2016 LUCAS RASMUSSEN APRN Ot M25.512 PAIN IN LEFT SHOULDER 12/12/2016 LUCAS RASMUSSEN APRN Ot M47.816 SPONDYLOSIS W/O MYELOPATHY OR RADICULOPA 12/12/2016 LUCAS RASMUSSEN APRN Ot S33.5XXA SPRAIN OF LIGAMENTS OF LUMBAR SPINE, INI 12/12/2016 LUCAS RASMUSSEN APRN Ot S46.812A STRAIN OF MUSC/FASC/TEND AT LDR/UP ARM 12/12/2016 LUCAS RASMUSSEN APRN Ot W18.2XXA FALL IN (INTO) SHOWER OR EMPTY BATHTUB, 12/12/2016 LUCAS RASMUSSEN APRN Ot Y92.012 BATHROOM OF SINGLE-FAMILY (PRIVATE) HOUS 12/12/2016 LUCAS RASMUSSEN APRN Ot Y99.8 OTHER EXTERNAL CAUSE STATUS 08/03/2017 EARLENE WINTER Kathi PROPERTY UTILIZATION MANAGER Ot 719.41 JOINT PAIN-SHLDER 08/03/2017 DARIUSZ HERNADEZ MD, Ot V76.12 OT SCREEN MAMMO-MALIGN NEOPLASM OF SOFIA 08/03/2017 DARIUSZ HERNADEZ MD Ot 285.9 ANEMIA NOS 08/03/2017 DARIUSZ HERNADEZ MD Ot 620.2 OVARIAN CYST NEC/NOS 08/03/2017 DARIUSZ HERNADEZ MD Ot 625.9 FEM GENITAL SYMPTOMS NOS 08/03/2017 DARIUSZ HERNADEZ MD Ot V72.63 PRE-PROCEDURAL LABORATORY EXAMINATION 08/03/2017 DARIUSZ HERNADEZ MD Ot V74.8 SCREEN-BACTERIAL DIS NEC 08/03/2017 LAKEISHA MCALLISTER, PERCY Ot V72.84 EXAM PRE-OPERATIVE NOS 08/03/2017 CLAUDIA DO, SHIRA F Ot 717.6 LOOSE BODY IN KNEE 08/03/2017 CLAUDIA DO, SHIRA F Ot 719.46 JOINT PAIN-L/LEG 08/03/2017 CLAUDIA DO, SHIRA F Ot 715.96 OSTEOARTHROS NOS-L/LEG 08/03/2017 CLAUDIA DO, SHIRA F Ot V72.84 EXAM PRE-OPERATIVE NOS 08/03/2017 CLAUDIA DO SHIRA F Ot V74.8 SCREEN-BACTERIAL DIS NEC 08/03/2017 YUSUF BUTLER APRN Ot 611.72 LUMP OR MASS IN BREAST 08/09/2017 WINTER HENAO PROPERTY UTILIZATION MANAGER Ot 719.41 JOINT PAIN-SHLDER 08/09/2017 DARIUSZ HERNADEZ MD Ot V76.12 OTH SCREEN MAMMO-MALIGN NEOPLASM OF SOFIA 08/09/2017 DARIUSZ HERNADEZ MD Ot 285.9 ANEMIA NOS 08/09/2017 DARIUSZ HERNADEZ MD Ot 620.2 OVARIAN CYST NEC/NOS 08/09/2017 DARIUSZ HERNADEZ MD Ot 625.9 FEM GENITAL SYMPTOMS NOS 08/09/2017 DARIUSZ HERNADEZ MD Ot V72.63 PRE-PROCEDURAL LABORATORY EXAMINATION 08/09/2017 DARIUSZ HERNADEZ MD Ot V74.8 SCREEN-BACTERIAL DIS NEC 08/09/2017 LAKEISHA MCALLISTER, PERCY Ot V72.84 EXAM PRE-OPERATIVE NOS 08/09/2017 CLAUDIA DO, SHIRA F Ot 717.6 LOOSE BODY IN KNEE 08/09/2017 CLAUDIA DO, SHIRA F Ot 719.46 JOINT PAIN-L/LEG 08/09/2017 CLAUDIA DO, SHIRA F Ot 715.96 OSTEOARTHROS NOS-L/LEG 08/09/2017 CLAUDIA DO SHIRA F Ot V72.84 EXAM PRE-OPERATIVE NOS 08/09/2017 CLAUDIA DO, SHIRA F Ot V74.8 SCREEN-BACTERIAL DIS NEC 08/09/2017 YUSUF BUTLER REACTOR OPERATOR Ot 611.72 LUMP OR MASS IN BREAST 08/10/2017 YASMIN SEXTON REACTOR OPERATOR Ot Z12.31 ENCNTR SCREEN MAMMOGRAM FOR MALIGNANT NE Procedures There is no data. Results Test Result Range CBC With Differential/Platelet - 06/11/17 10:10 WBC 5.6 x10E3/uL 3.4-10.8 RBC 4.83 x10E6/uL 3.77-5.28 Hemoglobin 14.1 g/dL 11.1-15.9 Hematocrit 42.8 % 34.0-46.6 MCV 89 fL 79-97 MCH 29.2 pg 26.6-33.0 MCHC 32.9 g/dL 31.5-35.7 RDW 13.9 % 12.3-15.4 Platelets 263 x10E3/uL 150-379 Neutrophils 69 % Lymphs 21 % Monocytes 7 % Eos 3 % Basos 0 % Neutrophils (Absolute) 3.8 x10E3/uL 1.4-7.0 Lymphs (Absolute) 1.2 x10E3/uL 0.7-3.1 Monocytes(Absolute) 0.4 x10E3/uL 0.1-0.9 Eos (Absolute) 0.2 x10E3/uL 0.0-0.4 Baso (Absolute) 0.0 x10E3/uL 0.0-0.2 Immature Granulocytes 0 % Immature Grans (Abs) 0.0 x10E3/uL 0.0-0.1 Comp. Metabolic Panel (14) - 06/11/17 10:10 Glucose, Serum 92 mg/dL 65-99 BUN 17 mg/dL 6-24 Creatinine, Serum 0.69 mg/dL 0.57-1.00 eGFR If NonAfricn Am 101 mL/min/1.73 >59 eGFR If Africn Am 117 mL/min/1.73 >59 BUN/Creatinine Ratio 25 9-23 Sodium, Serum 142 mmol/L 134-144 Potassium, Serum 4.5 mmol/L 3.5-5.2 Chloride, Serum 102 mmol/L 96-106 Carbon Dioxide, Total 24 mmol/L 18-29 Calcium, Serum 9.7 mg/dL 8.7-10.2 Protein, Total, Serum 7.1 g/dL 6.0-8.5 Albumin, Serum 4.5 g/dL 3.5-5.5 Globulin, Total 2.6 g/dL 1.5-4.5 A/G Ratio 1.7 1.2-2.2 Bilirubin, Total 0.3 mg/dL 0.0-1.2 Alkaline Phosphatase, S 98 IU/L 39-117 AST (SGOT) 15 IU/L 0-40 ALT (SGPT) 22 IU/L 0-32 Lipid Panel - 06/11/17 10:10 Cholesterol, Total 232 mg/dL 100-199 Triglycerides 206 mg/dL 0-149 HDL Cholesterol 56 mg/dL >39 VLDL Cholesterol Edgardo 41 mg/dL 5-40 LDL Cholesterol Calc 135 mg/dL 0-99 TSH - 06/11/17 10:10 TSH 0.948 uIU/mL 0.450-4.500 Sedimentation Rate-Westergren - 06/11/17 10:10 Sedimentation Rate-Westergren 4 mm/hr 0-40 C-Reactive Protein, Quant - 06/11/17 10:10 C-Reactive Protein, Quant 2.0 mg/L 0.0-4.9 CMP - 06/11/17 10:10 Glucose, Serum 92 mg/dL 65-99 BUN 17 mg/dL 6-24 Creatinine, Serum 0.69 mg/dL 0.57-1.00 eGFR If NonAfricn Am 101 mL/min/1.73 >59 eGFR If Africn Am 117 mL/min/1.73 >59 BUN/Creatinine Ratio 25 9-23 Sodium, Serum 142 mmol/L 134-144 Potassium, Serum 4.5 mmol/L 3.5-5.2 Chloride, Serum 102 mmol/L 96-106 Carbon Dioxide, Total 24 mmol/L 18-29 Calcium, Serum 9.7 mg/dL 8.7-10.2 Protein, Total, Serum 7.1 g/dL 6.0-8.5 Albumin, Serum 4.5 g/dL 3.5-5.5 Globulin, Total 2.6 g/dL 1.5-4.5 A/G Ratio 1.7 1.2-2.2 Bilirubin, Total 0.3 mg/dL 0.0-1.2 Alkaline Phosphatase, S 98 IU/L 39-117 AST (SGOT) 15 IU/L 0-40 ALT (SGPT) 22 IU/L 0-32 Encounters ACCT No. Visit Date/Time Discharge Status Pt. Type Provider Facility Loc./Unit Complaint [id number] 08/09/2017 11:34:00 08/09/2017 23:59:59 CLS Outpatient SEXTON YASMIN Christian REACTOR OPERATOR [facility] RAD SCREENING [id number] 12/10/2016 10:49:00 12/10/2016 11:54:00 DIS Emergency RASMUSSENLUCAS REACTOR OPERATOR [facility] ER FALL LEFT SHOULDER/LOWER BACK PAIN [id number] 08/03/2016 14:46:00 08/03/2016 23:59:59 CLS Outpatient LEISA WAGNER REACTOR OPERATOR [facility] QUICK LT FOOT XRAY [id number] 07/31/2016 10:43:00 07/31/2016 23:59:59 CLS Preadmit CHIARA HOWARD MD [facility] REHAB LOW BACK PAIN [id number] 07/25/2015 14:41:00 07/25/2015 23:59:59 CLS Outpatient FRANSISCO MINOR [facility] QUICK [id number] 05/13/2015 14:16:00 05/13/2015 23:59:59 CLS Outpatient YUSUF BUTLER APRN [facility] RAD ABD MAMMO [id number] 04/08/2015 09:20:00 04/08/2015 14:40:00 DIS Outpatient SHIRA TAYLOR DO [facility] RIGHT KNEE MASS, PAIN ; CHONDROMALASIA [id number] 04/03/2015 10:40:00 04/03/2015 23:59:59 CLS Outpatient SHIRA TAYLOR DO [facility] PREOP RIGHT KNEE MASS; PAIN; CHONDROMALASIA [id number] 02/01/2015 09:29:00 02/01/2015 23:59:59 CLS Outpatient SHIRA TAYLOR DO [facility] RAD RT KNEE LOOSE BODY, SOFT TISSUE MASS [id number] 08/22/2014 08:01:00 08/22/2014 11:30:00 DIS Outpatient PERCY SUAZO MD [facility] SCREENING [id number] 08/15/2014 05:49:00 08/15/2014 23:59:59 CLS Outpatient PERCY SUAZO MD [facility] PREOP SCREENING [id number] 05/18/2014 10:56:00 05/19/2014 09:45:00 DIS Outpatient [facility] [id number] 05/15/2014 15:05:00 05/15/2014 23:59:59 CLS Outpatient DARIUSZ HERNADEZ MD [facility] RAD ROUTINE [id number] 05/11/2014 10:28:00 05/11/2014 23:59:59 CLS Outpatient DARIUSZ HERNADEZ MD [facility] PREOP CHRONIC PELVIC PAIN [id number] 02/01/2014 17:41:00 02/01/2014 20:17:00 DIS Emergency AUDREY MUIR MD [facility] ER CHEST PAIN [id number] 11/10/2013 05:52:00 11/10/2013 07:54:00 DIS Emergency MAN ROJO MD [facility] ER MUCSLE CRAMPING [id number] 07/24/2013 15:54:00 07/24/2013 23:59:59 CLS Outpatient WINTER HENAO PROPERTY UTILIZATION MANAGER [facility] RAD STRAIN OF SHOULDER/ UPPER ARM [id number] 11/17/2011 12:57:00 Document Registration [id number] 12/18/2010 15:08:00 Document Registration [id number] 06/13/2017 20:06:00 Document Registration [id number] 03/14/2018 08:00:00 03/14/2018 23:59:59 CLS Outpatient DOROTHY ASHLEY MD [facility] [id number] 06/11/2017 10:00:00 Document Registration
[2018-05-29] MEDS ORDERED: KETOROLAC 30 MG/ML VIAL IM ONE (14:45)
--- NOTE | 2018-05-29 14:45 | ED Back Pain ---
General Chief Complaint: Back Problems Stated Complaint: BACK SPASMS,HERNIATED DISKS Nursing Triage Note: PT STATES HX OF BACK PAIN/SURGERY. PT VERBALIZED WEDNESDAY SHE CHANGING BLINDS, LANDED ON FEET HARD A FEW TIMES. PT VERBALIZED SHE HAD NECK/BACK PAIN THAT NIGHT, THURS HAD LEFT ARM NUMBNESS ALONG WITH NECK/BACK PAIN. PT VERBALIZED TODAY BACK PAIN/SMASMS. Nursing Sepsis Screen: No Definite Risk Source of Information: Patient Exam Limitations: Other (hard of hearing) History of Present Illness Date Seen by Provider: May 29, 2018 Time Seen by Provider: 14:25 Initial Comments Patient presents to the ER by private conveyance with a chief complaint that she has a history of back surgeries and bulging disks from her neck down to her tailbone. She also has a history of being hard of hearing. She's had surgeries in her neck and fusions. She was getting up and taking the blinds down to clean them in her bedroom and stepped off the bed she was standing on awkwardly couple times slamming on the ground never actually fell. Now she's having quite a bit of pain in her neck and her low back. This was 2 days ago she did this. One day ago she woke up having quite a bit of pain and numbness running down her left arm. She always has some level of paresthesias in her left arm which she says yesterday was completely numb. He got better today but now her low back is hurting worse. She's had no other trauma no falls no car wrecks recently. She is taking Tylenol. She's also having her right hand cysts injected with steroids and she is on a second course of that. She's got a little sciatic burning pain running down her left buttock down her femur almost to the level of the knee. She's had no saddle anesthesia or loss of control of bowel or bladder. Allergies and Home Medications Allergies Coded Allergies: NKANo Known Allergies (Unverified Allergy, Unknown, 05/18/14) Home Medications Acetaminophen 500 Mg Tablet, 500 MG PO Q6H, (Reported) Diphenhydramine HCl 25 Mg Capsule, 25 MG PO DAILY, (Reported) Multivitamin 1 Each Tablet, 1 EACH PO DAILY, (Reported) Patient Home Medication List Home Medication List Reviewed: Yes Review of Systems Constitutional: No chills, No diaphoresis EENTM: No ear discharge, No ear pain Respiratory: No cough, No short of breath Cardiovascular: No chest pain, No palpitations Gastrointestinal: No abdominal pain, No nausea, No vomiting Genitourinary: No discharge, No dysuria, No incontinence Musculoskeletal: back pain, neck pain Past Zrdglfm-Zpqtmf-Xyfrtj Hx Patient Social History Alcohol Use: Denies Use Recreational Drug Use: No Smoking Status: Never a Smoker Recent Foreign Travel: No Contact w/Someone Who Travel: No Recent Infectious Disease Expo: No Recent Hopitalizations: Yes Immunizations Up To Date Date of Pneumonia Vaccine: Jun 10, 2009 Past Medical History Appendectomy, Bladder Surgery, Gallbladder, Hysterectomy, Orthopedic Reproductive Disorders: No Chronic Diarrhea Arthritis, Chronic Back Pain Anxiety, Depression Family Medical History Alcoholism 19 FATHER 19 MOTHER G8 SISTER Alzheimer's disease 19 MOTHER Arthritis 19 FATHER 19 MOTHER G8 SISTER Cardiovascular disease 19 FATHER 19 MOTHER G8 SISTER Dementia 19 MOTHER Hypertension 19 FATHER 19 MOTHER G8 SISTER Thyroid disease 19 FATHER No Family History of: AIDS Abdominal aortic aneurysm Jett's disease Asthma Cancer of mouth Cataracts Colon cancer Completed stroke Congenital disease Congenital heart disease Diabetes mellitus Kidney disease Myocardial infarction Parkinson's disease Prostate cancer Psychosocial problem Respiratory disorder Seizure disorder Severe allergy Physical Exam Vital Signs Vital Signs - First Documented 05/29/18 14:28 Temp 98.9 Pulse 100 Resp 18 B/P (MAP) 169/137 (148) Pulse Ox 99 O2 Delivery Room Air Capillary Refill : Less Than 3 Seconds Height, Weight, BMI Height: 5'8.00" Weight: 200lbs. 12.8oz. 90.347833xm; 31.61 BMI Method:Stated General Appearance: WD/WN, Mild Distress HEENT: PERRL/EOMI, Pharynx Normal, Moist Mucous Membranes Neck: Full Range of Motion, Normal Inspection, Supple, Tender Midline (c4-7) Cardiovascular: Regular Rate, Rhythm, Normal Peripheral Pulses Respiratory: No Accessory Muscle Use, No Respiratory Distress Peripheral Pulses: 2+ Dorsalis Pedis (R), 2+ Left Dors-Pedis (L) Neurologic/Psychiatric: Alert, Oriented x3, No Motor/Sensory Deficits, Normal Mood/Affect, solar energy advisor II-XII Norm as Tested; No Motor Weakness, No Sensory Deficit Skin: Normal Color, Warm/Dry Progress/Results/Core Measures Results/Orders My Orders Orders - EDILIA LIGHT Ct Cervical Spine Wo (05/29/18 14:39) Ketorolac Injection (Toradol Injection) (05/29/18 14:45) Medications Given in ED Current Medications Medications Dose Ordered Sig/Yesenia Route Start Time Stop Time Status Last Admin Dose Admin Ketorolac Tromethamine 15 mg ONCE ONCE IM 05/29/18 14:45 05/29/18 14:46 DC 05/29/18 14:50 15 MG Vital Signs/I&O 05/29/18 14:28 Temp 98.9 Pulse 100 Resp 18 B/P (MAP) 169/137 (148) Pulse Ox 99 O2 Delivery Room Air Blood Pressure Mean: 148 Progress Progress Note : Time: 14:44 Progress Note We'll start her some Toradol and image her C-spine. Her left leg sciatica is chronic and seems to be just exacerbation of her recent activities. More concerning is the numbness she was experiencing although it is getting better in her left arm. She has sensation in her left arm hand and fingers as well as equal motor strength. Diagnostic Imaging Diagonstic Imaging: CT Plain Films/CT/US/NM/MRI: c-spine Comments NAME: CARONVIN Armenta MED REC#: [id number] PHYSICIAN: EDILIA LIGHT MD CC: JEANIE MORALES; EDILIA LIGHT Page 1 of 1 RADIOLOGY REPORT VIA [facility] [place], [place] CC: JEANIE MORALES; EDILIA LIGHT Page 1 of 1 RADIOLOGY REPORT NAME: CARONJOSVIN Kathi MED REC#: [id number] PT STATUS: REG ER : 1965 PHYSICIAN: EDILIA LIGHT MD ADMIT DATE: 05/29/18/ER Signed Date of Exam: 05/29/18 CT CERVICAL SPINE WO PROCEDURE: CT cervical spine without contrast. TECHNIQUE: Multiple contiguous axial images were obtained through the cervical spine without the use of intravenous contrast. Sagittal and coronal reformations were then performed. INDICATION: Neck pain with left arm numbness. COMPARISON: 09/05/2011. FINDINGS: Stable anterior fusion is seen at the C5-C6 level. No hardware loosening or failure is seen. Alignment of the cervical column is normal. There is no osseous lesion. No mass or inflammatory process is identified. The central canal appears grossly unremarkable. IMPRESSION: 1. No traumatic malalignment or fracture. 2. Stable C5-C6 anterior fusion. Dictated by: Dictated on workstation # [id number] Dict: 05/29/18 151 Trans: 05/29/181518 Interpreted by: JEANIE MORALES Electronically signed by: JEANIE MORALES 05/29/18 1519 Reviewed: Reviewed by Me Departure Impression Primary Impression: Cervical radiculopathy Additional Impression: Lumbago with sciatica, left side Qualified Codes: M54.42 - Lumbago with sciatica, left side Disposition: 01 HOME, SELF-CARE Condition: Improved Departure-Patient Inst. Decision time for Depature: 15:50 Referrals: [facility] [place] (PCP/Family) Primary Care Physician Patient Instructions: Low Back Pain (DC) Add. Discharge Instructions: Take the prednisone 2 tablets daily for the next 5 days to help bring down the swelling and inflammation in your back. You can also use Naprosyn 2 capsules [id number] twice a day for the same purpose. You can use Tylenol 1000 mg every 8 hours. Use heat and creams such as icy hot or Aspercreme. If you're having spasms of the back you can take the cyclobenzaprine 1 tablet every 8 hours as needed. All discharge instructions reviewed with patient and/or family. Voiced understanding. Scripts Prednisone (Prednisone) 20 Mg Tab 40 MG PO DAILY for 5 Days, #10 TAB 0 Refills Prov: EDILIA LIGHT 05/29/18 Cyclobenzaprine HCl (Cyclobenzaprine HCl) 10 Mg Tablet 10 MG PO Q8H PRN for SPASMS, #25 TAB 0 Refills Prov: EDILIA LIGHT 05/29/18 EDILIA LIGHT May 29, 2018 14:45
--- NOTE | 2018-05-29 15:15 | Diagnostic Imaging Report ---
PROCEDURE: CT cervical spine without contrast. TECHNIQUE: Multiple contiguous axial images were obtained through the cervical spine without the use of intravenous contrast. Sagittal and coronal reformations were then performed. INDICATION: Neck pain with left arm numbness. COMPARISON: 09/05/2011. FINDINGS: Stable anterior fusion is seen at the C5-C6 level. No hardware loosening or failure is seen. Alignment of the cervical column is normal. There is no osseous lesion. No mass or inflammatory process is identified. The central canal appears grossly unremarkable. IMPRESSION: 1. No traumatic malalignment or fracture. 2. Stable C5-C6 anterior fusion. Dictated by: Dictated on workstation # [id number]
[2018-05-29] MEDS ORDERED: CYCL10TA9 PO (15:52)
[2018-05-29] MEDS ORDERED: PRD20T PO (15:52)
[2018-05-29 16:00] VITALS: BP 155/119
== END 2018-05-29 16:00 | disposition home or self-care (01) ==
LOC: EDUNIT# 13:20 → ER 13:22
DX: M54.12 Radiculopathy, cervical region (principal); M54.42 Lumbago with sciatica, left side; F41.9 Anxiety disorder, unspecified; F32.9 Major depressive disorder, single episode, unspecified; Z98.1 Arthrodesis status; Z90.89 Acquired absence of other organs; Z82.49 Family history of ischemic heart disease and other diseases of the circulatory system; Z90.710 Acquired absence of both cervix and uterus; Z87.19 Personal history of other diseases of the digestive system
CPT/HCPCS: 72125; 96372

== ENCOUNTER 2019-07-23 10:40 | Emergency (ER) | payer OTHER ==
[~2019-07-23] VITALS: Ht 172 cm; Wt 108.2 kg
[~2019-07-23 10:40] MED LIST changes: +PRD20T PO
[2019-07-23] MEDS ORDERED: MELO15TA14 PO (10:56)
[2019-07-23] MEDS ORDERED: RANI-613 PO (10:56)
--- NOTE | 2019-07-23 11:03 | ED Chest Pain ---
General Chief Complaint: Chest Pain Stated Complaint: CHEST PAIN Nursing Triage Note: Patient reports over the past several months she has been evaluated by her PCP for generalized edema and hypertension but has not taken anything for either. Yesterday had increased amount of swelling in lower extremities but it has resolved today but has L sided chest pain today, denies anything making the pain better/worse. Pain with breathing Nursing Sepsis Screen: No Definite Risk Source: patient Exam Limitations: no limitations History of Present Illness Date Seen by Provider: Jul 23, 2019 Time Seen by Provider: 11:00 Initial Comments To ER per private vehicle with reports of left-sided chest pain lateral to the left breast. This initially began yesterday, she also noticed diffuse swelling to her entire body yesterday. She had to put oil on her hands to get her rings off. No history of this no shortness of breath. She does report that taking a deep breath or breathing in general worsens the left lateral chest pain and changes it from dull to sharp. No cough no fever no chills. She is a nonsmoker does have high cholesterol is obese, not diabetic and no history of hypertension. She has a family history of leukemia and heart disease. Her only prescription medication is meloxicam Timing/Duration: 24 hours Severity/Quality: moderate Location: other Activities at Onset: rest Prior CP/Workup: no prior chest pain Modifying Factors: worse with breathing ASA po LOCKSTITCH FRONT EDGE TAPE SEWER: No NTG SL LOCKSTITCH FRONT EDGE TAPE SEWER: No Associated Symptoms: No rash, No shortness of breath Allergies and Home Medications Allergies Coded Allergies: NKANo Known Allergies (Unverified Allergy, Unknown, 05/18/14) Home Medications Acetaminophen 500 Mg Tablet, 500 MG PO Q6H, (Reported) Cyclobenzaprine HCl 10 Mg Tablet, 10 MG PO Q8H PRN for SPASMS Prescribed by: EDILIA LIGHT on 05/29/18 4057 Multivitamin 1 Each Tablet, 1 EACH PO DAILY, (Reported) Patient Home Medication List Home Medication List Reviewed: Yes Review of Systems Review of Systems Constitutional: see HPI EENTM: No Symptoms Reported Respiratory: See HPI; Denies Cough, Denies Orthopnea, Denies Shortness of Air Cardiovascular: See HPI, Chest Pain Gastrointestinal: No Symptoms Reported Genitourinary: No Symptoms Reported Musculoskeletal: no symptoms reported Skin: no symptoms reported Psychiatric/Neurological: No Symptoms Reported Endocrine: No Symptoms Reported Hematologic/Lymphatic: No Symptoms Reported Past Ofowjmd-Mlkbrn-Cvknzy Hx Patient Social History Alcohol Use: Denies Use Recreational Drug Use: No Smoking Status: Never a Smoker Recent Foreign Travel: No Contact w/Someone Who Travel: No Recent Infectious Disease Expo: No Recent Hopitalizations: Yes Immunizations Up To Date Date of Pneumonia Vaccine: Jun 10, 2009 Past Medical History Surgeries: Yes (NECK FUSION SX, ANT/POST REPAIR WITH HYST. r knee, lower gi scope,) Appendectomy, Bladder Surgery, Gallbladder, Hysterectomy, Orthopedic Respiratory: No Cardiac: No Neurological: Yes (SPINAL INJURY) Reproductive Disorders: No Gastrointestinal: Yes Chronic Diarrhea Musculoskeletal: Yes Arthritis, Chronic Back Pain Endocrine: No Cancer: No Psychosocial: Yes Anxiety, Depression Integumentary: No Blood Disorders: No Family Medical History Alcoholism 19 FATHER 19 MOTHER G8 SISTER Alzheimer's disease 19 MOTHER Arthritis 19 FATHER 19 MOTHER G8 SISTER Cardiovascular disease 19 FATHER 19 MOTHER G8 SISTER Dementia 19 MOTHER Hypertension 19 FATHER 19 MOTHER G8 SISTER Thyroid disease 19 FATHER No Family History of: AIDS Abdominal aortic aneurysm Waverly's disease Asthma Cancer of mouth Cataracts Colon cancer Completed stroke Congenital disease Congenital heart disease Diabetes mellitus Kidney disease Myocardial infarction Parkinson's disease Prostate cancer Psychosocial problem Respiratory disorder Seizure disorder Severe allergy Physical Exam Vital Signs Vital Signs - First Documented 07/23/19 10:49 Temp 36.7 Pulse 101 Resp 18 B/P (MAP) 161/122 (135) Pulse Ox 100 O2 Delivery Room Air Capillary Refill : Less Than 3 Seconds Height, Weight, BMI Height: 5'8.00" Weight: 200lbs. 12.8oz. [id number]; 36.00 BMI Method:Stated General Appearance: No Apparent Distress, WD/WN, Obese HEENT: PERRL/EOMI, TMs Normal Neck: Full Range of Motion, Normal Inspection Respiratory: Chest Non Tender, Lungs Clear, Normal Breath Sounds, No Accessory Muscle Use, No Respiratory Distress Cardiovascular: Normal Peripheral Pulses, Tachycardia (100) Gastrointestinal: Normal Bowel Sounds, Non Tender, Soft Extremity: Normal Capillary Refill, Normal Inspection Neurologic/Psychiatric: Alert, Oriented x3 (very pleasant) Skin: Normal Color, Warm/Dry Progress/Results/Core Measures Results/Orders Lab Results Laboratory Tests Test 07/23/19 10:50 07/23/19 12:46 Range/Units White Blood Count 6.8 4.3-11.0 10^3/uL Red Blood Count 4.72 4.35-5.85 10^6/uL Hemoglobin 13.7 11.5-16.0 G/DL Hematocrit 41 35-52 % Mean Corpuscular Volume 87 80-99 FL Mean Corpuscular Hemoglobin 29 25-34 PG Mean Corpuscular Hemoglobin Concent 33 32-36 G/DL Red Cell Distribution Width 13.9 10.0-14.5 % Platelet Count 259 130-400 10^3/uL Mean Platelet Volume 10.4 7.4-10.4 FL Neutrophils (%) (Auto) 64 42-75 % Lymphocytes (%) (Auto) 24 12-44 % Monocytes (%) (Auto) 9 0-12 % Eosinophils (%) (Auto) 3 0-10 % Basophils (%) (Auto) 0 0-10 % Neutrophils # (Auto) 4.3 1.8-7.8 X 10^3 Lymphocytes # (Auto) 1.6 1.0-4.0 X 10^3 Monocytes # (Auto) 0.6 0.0-1.0 X 10^3 Eosinophils # (Auto) 0.2 0.0-0.3 10^3/uL Basophils # (Auto) 0.0 0.0-0.1 10^3/uL Prothrombin Time 12.8 12.2-14.7 SEC INR Comment 0.9 0.8-1.4 Activated Partial Thromboplast Time 30 24-35 SEC D-Dimer 0.48 0.00-0.49 UG/ML Sodium Level 142 135-145 MMOL/L Potassium Level 3.8 3.6-5.0 MMOL/L Chloride Level 106 98-107 MMOL/L Carbon Dioxide Level 25 21-32 MMOL/L Anion Gap 11 5-14 MMOL/L Blood Urea Nitrogen 19 H 7-18 MG/DL Creatinine 0.83 0.60-1.30 MG/DL Estimat Glomerular Filtration Rate > 60 BUN/Creatinine Ratio 23 Glucose Level 109 H 70-105 MG/DL Calcium Level 9.3 8.5-10.1 MG/DL Corrected Calcium 9.2 8.5-10.1 MG/DL Magnesium Level 2.1 1.6-2.4 MG/DL Total Bilirubin 0.2 0.1-1.0 MG/DL Aspartate Amino Transf (AST/SGOT) 30 5-34 U/L Alanine Aminotransferase (ALT/SGPT) 50 0-55 U/L Alkaline Phosphatase 104 40-136 U/L Myoglobin 26.5 10.0-92.0 NG/ML Troponin I < 0.028 < 0.028 <0.028 NG/ML B-Type Natriuretic Peptide 10.6 <100.0 PG/ML Total Protein 7.1 6.4-8.2 GM/DL Albumin 4.1 3.2-4.5 GM/DL My Orders Orders - LUCAS RASMUSSEN MATERIALS ASSISTANT Cbc With Automated Diff (07/23/19 10:45) Magnesium (07/23/19 10:45) Chest 1 View, Ap/Pa Only (07/23/19 10:45) Ekg Tracing (07/23/19 10:45) Cardiac Profile 1 (07/23/19 10:45) Comprehensive Metabolic Panel (07/23/19 10:45) Myoglobin Serum (07/23/19 10:45) Protime With Inr (07/23/19 10:45) Partial Thromboplastin Time (07/23/19 10:45) O2 (07/23/19 10:45) Monitor-Rhythm Ecg Trace Only (07/23/19 10:45) Lipid Panel (07/24/19 06:00) Ed Iv/Invasive Line Start (07/23/19 10:45) BNP (07/23/19 10:45) Fibrin Degradation Products (07/23/19 10:45) Aspirin Chewable Tablet (Baby Aspirin Ch (07/23/19 11:15) Troponin I (07/23/19 12:50) Medications Given in ED Current Medications Medications Dose Ordered Sig/Yesenia Route Start Time Stop Time Status Last Admin Dose Admin Aspirin 324 mg ONCE ONCE PO 07/23/19 11:15 07/23/19 11:16 DC 07/23/19 11:23 324 MG Vital Signs/I&O 07/23/19 10:49 Temp 36.7 Pulse 101 Resp 18 B/P (MAP) 161/122 (135) Pulse Ox 100 O2 Delivery Room Air Blood Pressure Mean: 135 POS Diagnostic Imaging Diagonstic Imaging: Xray Plain Films/CT/US/NM/MRI: chest Comments NAME: VIN REARDON MED REC#: [id number] PT STATUS: REG ER : 1965 PHYSICIAN: LUCAS RASMUSSEN APRN ADMIT DATE: 07/23/19/ER Draft POSDate of Exam:07/23/19 CHEST 1 VIEW, AP/PA ONLY INDICATION: Chest pain, whole body edema. EXAMINATION: Abdomen, 07/23/2019. COMPARISONS: No recent. FINDINGS: The heart is prominent. Pulmonary vasculature is normal. Lungs and pleural spaces are clear. IMPRESSION: 1. Mild cardiomegaly; otherwise, negative chest. Dictated on workstation # [id number] Dict: 07/23/19 1119 Trans: 07/23/19 1121 [id number] Interpreted by: KALYANI MAYNARD MD Electronically signed by: Departure Impression Primary Impression: Chest wall pain Disposition: HOME, SELF-CARE Condition: Stable Departure-Patient Inst. Decision time for Depature: 13:34 Referrals: ROBB CONNOLLY MD (PCP/Family) Primary Care Physician Patient Instructions: Chest Pain Add. Discharge Instructions: 1. Follow-up with Dr. Connolly later this week for recheck 2. Return to ER for any concerns Scripts Hydrochlorothiazide (Hydrochlorothiazide) 12.5 Mg Tablet 12.5 MG PO DAILY, #30 TAB Prov: LUCAS RASMUSSEN APRN 07/23/19 Copy Copies To 1: ROBB CONNOLLY MD, PETER J APRN Jul 23, 2019 11:03 POS
[2019-07-23 11:04] LABS: BASOPHILS % (AUTO) 0 % (0-10); EOSINOPHILS # (AUTO) 0.2 10^3/uL (0.0-0.3); EOSINOPHILS % (AUTO) 3 % (0-10); HEMATOCRIT 41 % (35-52); HEMOGLOBIN 13.7 G/DL (11.5-16.0); LYMPHOCYTES # (AUTO) 1.6 X 10^3 (1.0-4.0); LYMPHOCYTES % (AUTO) 24 % (12-44); MEAN CORPUSCULAR HEMOGLOBIN 29 PG (25-34); MEAN CORPUSCULAR HGB CONC 33 G/DL (32-36); MEAN CORPUSCULAR VOLUME 87 FL (80-99); MEAN PLATELET VOLUME 10.4 FL (7.4-10.4); MONOCYTES # (AUTO) 0.6 X 10^3 (0.0-1.0); MONOCYTES % (AUTO) 9 % (0-12); NEUTROPHILS # (AUTO) 4.3 X 10^3 (1.8-7.8); NEUTROPHILS % (AUTO) 64 % (42-75); PLATELET COUNT 259 10^3/uL (130-400); RED CELL DISTRIBUTION WIDTH 13.9 % (10.0-14.5); WHITE BLOOD COUNT 6.8 10^3/uL (4.3-11.0)
[2019-07-23] MEDS ORDERED: ASPIRIN 81 MG CHEW (CHILDREN'S ASA) PO ONE (11:15)
[2019-07-23 11:16] LABS: INR 0.9 (0.8-1.4); PROTHROMBIN TIME PATIENT 12.8 SEC (12.2-14.7)
--- NOTE | 2019-07-23 11:22 | Diagnostic Imaging Report ---
INDICATION: Chest pain, whole body edema. EXAMINATION: Abdomen, 07/23/2019. COMPARISONS: No recent. FINDINGS: The heart is prominent. Pulmonary vasculature is normal. Lungs and pleural spaces are clear. IMPRESSION: 1. Mild cardiomegaly; otherwise, negative chest. Dictated by: Dictated on workstation # [id number]
[2019-07-23 11:23] LABS: ALANINE AMINOTRANSFERASE 50 U/L (0-55); ALBUMIN 4.1 GM/DL (3.2-4.5); ALKALINE PHOSPHATASE 104 U/L (40-136); BILIRUBIN,TOTAL 0.2 MG/DL (0.1-1.0); BUN/CREATININE RATIO 23; CALCIUM 9.3 MG/DL (8.5-10.1); CARBON DIOXIDE 25 MMOL/L (21-32); CHLORIDE 106 MMOL/L (98-107); CREATININE SERUM 0.83 MG/DL (0.60-1.30); GFR ESTIMATED > 60; GLUCOSE 109 MG/DL (70-105); MAGNESIUM 2.1 MG/DL (1.6-2.4); POTASSIUM 3.8 MMOL/L (3.6-5.0); SODIUM 142 MMOL/L (135-145); TOTAL PROTEIN 7.1 GM/DL (6.4-8.2)
[2019-07-23] MEDS ORDERED: HYDR12.56 PO (13:35)
[2019-07-23 13:46] VITALS: BP 150/98
== END 2019-07-23 13:45 | disposition home or self-care (01) ==
LOC: EDUNIT# 10:40 → ER 10:41
DX: R07.89 Other chest pain (principal); E78.00 Pure hypercholesterolemia, unspecified; E66.9 Obesity, unspecified; F41.9 Anxiety disorder, unspecified; F32.9 Major depressive disorder, single episode, unspecified; Z68.36 Body mass index [BMI] 36.0-36.9, adult; Z82.49 Family history of ischemic heart disease and other diseases of the circulatory system; Z90.49 Acquired absence of other specified parts of digestive tract; Z90.710 Acquired absence of both cervix and uterus
CPT/HCPCS: 36415; 71045; 80053; 83735; 83874; 83880; 84484; 85025; 85379; 85610; 85730; 93005; 93041

== ENCOUNTER → 2020-06-06 | Outpatient (CLI) | payer OTHER ==
[~2020-06-06] MED LIST changes: +HYDR12.56 PO; +MELO15TA14 PO; +RANI-613 PO
--- NOTE | 2020-06-06 13:25 | Diagnostic Imaging Report ---
INDICATION: Palpable lump left breast. Correlation is made prior mammogram of 08/09/2017 05/13/2015. 2-D and 3-D bilateral diagnostic mammography was performed with CAD. BB marker was placed at the area of palpable abnormality in left breast. Both breasts are heterogeneously dense, limiting the sensitivity of mammography. There are benign nodular densities in both breasts which appear stable. No new mass or malignant appearing microcalcifications are seen. Axillae are unremarkable. IMPRESSION: BI-RADS 0 No mammographic features suspicious for malignancy are identified. Even so, directed sonographic interrogation of the area of palpable abnormality in the left breast is recommended and will be performed today. ACR BI-RADS Category 0: Incomplete. (Needs additional imaging evaluation). Result letter will be mailed to the patient. Note: At least 10% of breast cancer is not imaged by mammography. Dictated by: Dictated on workstation # [id number]
--- NOTE | 2020-06-06 17:25 | Diagnostic Imaging Report ---
INDICATION: Palpable lump in left breast. COMPARISON: Correlation is made with diagnostic study from earlier the same day. EXAMINATION: Sonography interrogation of the area of palpable lump in the left breast was performed. This corresponds to the 10:00 location of the left breast, 8 cm from the nipple. FINDINGS: No sonographic abnormality is seen. No solid or cystic mass is detected. IMPRESSION: No sonographic abnormality is detected. Continued close clinical and self breast exam is recommended to confirm stability of the palpable abnormality. ACR BI-RADS Category 1: Negative. Result letter will be mailed to the patient. Note: At least 10% of breast cancer is not imaged by mammography. Dictated by: Dictated on workstation # [id number]
== END ==
LOC: RAD 13:15
PROVIDERS: ATTEND Pediatrics
DX: N63.20 Unspecified lump in the left breast, unspecified quadrant (principal); M54.5 Low back pain
CPT/HCPCS: 76642; 77066; G0279; 77062

== ENCOUNTER → 2021-02-28 | Outpatient (CLI) | payer OTHER ==
--- NOTE | 2021-02-28 12:07 | Diagnostic Imaging Report ---
PROCEDURE: MRI left upper extremity without contrast. TECHNIQUE: Multiplanar, multisequence non contrast-enhanced MRI of the left upper extremity was accomplished. INDICATION: Left shoulder pain. COMPARISON: MRI from 07/24/2013 FINDINGS: No acute fracture or dislocation is seen in the left shoulder. Alignment appears normal. There is some fluid in the superior subscapularis recess, but no significant joint effusion is seen. There is trace fluid in the subacromial subdeltoid bursa. There is moderate degenerative change in the acromioclavicular joint. The supraspinatus tendon is intact. The infraspinatus tendon appears intact. The teres minor and subscapularis tendons are intact. The long head of the biceps tendon is normal in course and signal. There is no muscular atrophy seen. The glenoid labrum is suboptimally evaluated in the absence of intra-articular contrast but no para labral cyst is seen. The acromion has a curved undersurface without hooking. The coracoclavicular and coracoacromial ligaments are intact. Soft tissues about the left shoulder are otherwise unremarkable. IMPRESSION: 1. Moderate degenerative changes in the acromioclavicular joint with a minimal subacromial subdeltoid bursitis and low-grade fraying at the bursal surface of the supraspinatus tendon. No full-thickness rotator cuff tear is seen. Dictated by: Dictated on workstation # [id number]
== END ==
LOC: RAD 09:29
PROVIDERS: ATTEND Pediatrics
DX: S46.012A Strain of muscle(s) and tendon(s) of the rotator cuff of left shoulder, initial encounter (principal); M19.012 Primary osteoarthritis, left shoulder; R05 Cough
CPT/HCPCS: 73221

== ENCOUNTER 2021-03-05 20:13 | Emergency (ER) | payer OTHER ==
[~2021-03-05] VITALS: Ht 170 cm; Wt 113.4 kg
[2021-03-05] MEDS ORDERED: PRAZ1CAP2 PO (20:26)
[2021-03-05] MEDS ORDERED: HYDR-3817 (20:26)
[2021-03-05] MEDS ORDERED: LISI10TA25 (20:26)
[2021-03-05] MEDS ORDERED: GABA-490 (20:26)
[2021-03-05] MEDS ORDERED: TRAZ-227 (20:26)
[2021-03-05 20:27] LABS: CLARITY,URINE TURBID; COLOR,URINE RED; GLUCOSE, URINE (UA) 1+ (NEGATIVE); KETONES,URINE 1+ (NEGATIVE); LEUKOCYTE ESTERASE ,URINE 2+ (NEGATIVE); NITRITE,URINE POSITIVE (NEGATIVE); PROTEIN,URINE 3+ (NEGATIVE)
--- NOTE | 2021-03-05 20:35 | ED GU-Female ---
General Chief Complaint: - Urinary Stated Complaint: BLOOD IN URINE/DIFF URINATING Nursing Triage Note: difficulty urinating, blood in urine x3 hrs. constipation. Nursing Sepsis Screen: No Definite Risk Source: patient Exam Limitations: no limitations History of Present Illness Date Seen by Provider: Mar 05, 2021 Time Seen by Provider: 20:34 Initial Comments This is a well-appearing 56-year-old female who presents to the ER with complaints of severe burning, urgency, frequency when she attempts to urinate. States that symptoms started yesterday and has progressively worsened today to the point that she is unable to urinate but very small amounts. States she has a lot of pressure in her bladder which is causing pain to radiate into her back. Denies fever, chills, cough, shortness of breath, vomiting. Has not taken anything prior to arrival. Allergies and Home Medications Allergies Coded Allergies: NKANo Known Allergies (Unverified Allergy, Unknown, 05/18/14) Home Medications Acetaminophen 500 Mg Tablet, 500 MG PO Q6H, (Reported) Last Action: Last Taken Edited Cefuroxime Axetil 250 Mg Tablet, 250 MG PO BID Prescribed by: LORENZO DIAZ on 03/05/212103 Cyclobenzaprine HCl 10 Mg Tablet, 10 MG PO Q8H PRN for SPASMS Prescribed by: EDILIA LIGHT on 05/29/18 1552 Last Action: Last Taken Edited Hydrochlorothiazide 12.5 Mg Tablet, 12.5 MG PO DAILY Prescribed by: LUCAS RASMUSSEN on 07/23/19 1335 Last Action: Last Taken Edited Patient Home Medication List Home Medication List Reviewed: Yes Review of Systems Review of Systems Constitutional: see HPI EENTM: no symptoms reported Respiratory: no symptoms reported Cardiovascular: no symptoms reported Gastrointestinal: see HPI Genitourinary: see HPI Musculoskeletal: no symptoms reported Skin: no symptoms reported Psychiatric/Neurological: No Symptoms Reported Endocrine: No Symptoms Reported Hematologic/Lymphatic: No Symptoms Reported Past Djspizs-Wiqjcx-Xbtfpu Hx Patient Social History Alcohol Use: Rarely Uses Smoking Status: Never a Smoker Recent Infectious Disease Expo: No Recent Hopitalizations: No Immunizations Up To Date Tetanus Booster (TDap): Less than 5yrs Date of Pneumonia Vaccine: Jun 10, 2009 Seasonal Allergies Seasonal Allergies: No Past Medical History Surgeries: Yes (NECK FUSION SX, ANT/POST REPAIR WITH HYST. 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 Genitourinary: No Gastrointestinal: Yes Chronic Diarrhea Musculoskeletal: Yes Arthritis, Chronic Back Pain Endocrine: No HEENT: No Cancer: No Psychosocial: Yes Anxiety, Depression Integumentary: No Blood Disorders: No Family Medical History Alcoholism 19 FATHER 19 MOTHER G8 SISTER Alzheimer's disease 19 MOTHER Arthritis 19 FATHER 19 MOTHER G8 SISTER Cardiovascular disease 19 FATHER 19 MOTHER G8 SISTER Dementia 19 MOTHER Hypertension 19 FATHER 19 MOTHER G8 SISTER Thyroid disease 19 FATHER No Family History of: AIDS Abdominal aortic aneurysm Bradford's disease Asthma Cancer of mouth Cataracts Colon cancer Completed stroke Congenital disease Congenital heart disease Diabetes mellitus Kidney disease Myocardial infarction Parkinson's disease Prostate cancer Psychosocial problem Respiratory disorder Seizure disorder Severe allergy Physical Exam Vital Signs Vital Signs - First Documented 03/05/21 20:17 Temp 36.8 Pulse 124 Resp 20 B/P (MAP) 158/105 (122) Pulse Ox 97 O2 Delivery Room Air Capillary Refill : Less Than 3 Seconds Height, Weight, BMI Height: 5'8.00" Weight: 200lbs. 12.8oz. 90.684049jf; 39.00 BMI Method:Stated General Appearance: WD/WN, no apparent distress HEENT: PERRL/EOMI, normal ENT inspection Neck: full range of motion, normal inspection Cardiovascular: regular rate, rhythm, no murmur Respiratory: lungs clear, normal breath sounds, no respiratory distress Gastrointestinal: normal bowel sounds, non tender, soft Back: no CVA tenderness Extremities: normal range of motion, normal inspection Neurologic/Psychiatric: no motor/sensory deficits, alert, normal mood/affect, oriented x 3 Skin: normal color, warm/dry Progress/Results/Core Measures Suspected Sepsis Recent Fever Within 48 Hours: No Infection Criteria Present: None New/Unexplained Altered Menta: No Sepsis Screen: No Definite Risk SIRS Temperature: Pulse: 124 Respiratory Rate: 20 Laboratory Tests 03/05/21 20:40: White Blood Count 10.8 Blood Pressure 158 /105 Mean: 122 Laboratory Tests 03/05/21 20:40: Creatinine 1.02, Platelet Count 268, Total Bilirubin 0.3 Results/Orders Lab Results My Orders Medications Given in ED Vital Signs/I&O Capillary Refill : Less Than 3 Seconds Blood Pressure Mean: 122 Diagnostic Imaging Diagonstic Imaging: CT Plain Films/CT/US/NM/MRI: abdomen Comments [facility] [place] NAME: VIN REARDON [facility] REC#: [id number] PT STATUS: DEP ER : 1965 PHYSICIAN: LORENZO DIAZ MILLINERY COPYIST ADMIT DATE: 03/05/21/ER Signed Date of Exam:03/05/21 CT ABDOMEN/PELVIS W WO PROCEDURE: CT abdomen and pelvis with and without contrast. TECHNIQUE: Auto Exposure Controls were utilized during the CT exam to meet ALARA standards for radiation dose reduction. INDICATION: Inability to urinate. Lower abdominal pain, blood in the urine. No history of cancer. Previous cholecystectomy, hysterectomy, bladder surgery and spinal surgery. COMPARISON STUDY: There are no pertinent studies. FINDINGS: The lung bases are clear. Mild fatty metamorphosis of the liver is present with no focal abnormality. The spleen, pancreas, adrenal glands and kidneys are normal. The urinary bladder is decompressed. Uterus is absent. No ascites, free air or abnormal adenopathy is present. There is no hernia. No inflammatory or obstructive change is seen within the colon. Small bowel loops are nondistended. No inflammation is seen. Some degenerative change is present in the lumbar spine. IMPRESSION: 1. There is fatty liver. 2. Bladder is decompressed and cannot be well evaluated. 3. Mild degenerative change is present in the lumbar spine. Reviewed: Reviewed by Me Departure Impression Primary Impression: Cystitis Disposition: HOME, SELF-CARE Condition: Improved Departure-Patient Inst. Decision time for Depature: 21:00 Referrals: ROBB CONNOLLY MD (PCP/Family) Primary Care Physician Patient Instructions: Urinary Tract Infection, Adult (DC) Add. Discharge Instructions: 1. Drink plenty of fluids and take antibiotics as directed. Complete full course even if you begin to feel better. 2. You can buy over the counter AZO urinary relief for burning/frequency symptom s. Take as directed. 3. Follow up with your primary care provider if your symptoms persist. 4. We have cultured your urine, if a different antibiotic is needed we will notify you via telephone. 5. Return to ER if you develop and new, concerning, or worsening symptoms. All discharge instructions reviewed with patient and/or family. Voiced understanding. Scripts Cefuroxime Axetil (Cefuroxime) 250 Mg Tablet 250 MG PO BID for 10 Days, #10 TAB 0 Refills Prov: LORENZO DIAZ APRN 03/05/21 LORENZO DIAZ APRN Mar 05, 2021 20:35
[2021-03-05 20:38] LABS: BACTERIA,URINE LARGE /HPF; RBC,URINE TNTC /HPF; WBC,URINE >100 /HPF
[2021-03-05 20:39] LABS: SQUAMOUS EPITHELIAL CELL,UR 0-2 /HPF
[2021-03-05] MEDS ORDERED: KETOROLAC 30 MG/ML VIAL IVP ONE (20:45)
[2021-03-05] MEDS ORDERED: cefTRIAXone 1,000 MG in WATER (STERILE) FOR INJECTION 10 ML IV ONE (20:45)
[2021-03-05] MEDS ORDERED: PHENAZOPYRIDINE 100 MG (PYRIDIUM) TABLET PO ONE (20:45)
[2021-03-05 20:46] LABS: BASOPHILS % (AUTO) 0 % (0-10); EOSINOPHILS # (AUTO) 0.1 10^3/uL (0.0-0.3); EOSINOPHILS % (AUTO) 1 % (0-10); HEMATOCRIT 42 % (35-52); HEMOGLOBIN 14.1 g/dL (11.5-16.0); LYMPHOCYTES # (AUTO) 1.2 10^3/uL (1.0-4.0); LYMPHOCYTES % (AUTO) 11 % (12-44); MEAN CORPUSCULAR HEMOGLOBIN 29 pg (25-34); MEAN CORPUSCULAR HGB CONC 33 g/dL (32-36); MEAN CORPUSCULAR VOLUME 88 fL (80-99); MEAN PLATELET VOLUME 10.3 fL (9.0-12.2); MONOCYTES # (AUTO) 0.7 10^3/uL (0.0-1.0); MONOCYTES % (AUTO) 7 % (0-12); NEUTROPHILS # (AUTO) 8.7 10^3/uL (1.8-7.8); NEUTROPHILS % (AUTO) 80 % (42-75); PLATELET COUNT 268 10^3/uL (130-400); WHITE BLOOD COUNT 10.8 10^3/uL (4.3-11.0)
[2021-03-05] MEDS ORDERED: CEFU250T80 PO (21:04)
[2021-03-05 21:05] LABS: ALBUMIN 4.3 GM/DL (3.2-4.5); POTASSIUM 3.6 MMOL/L (3.6-5.0)
[2021-03-05 21:06] LABS: CALCIUM 9.6 MG/DL (8.5-10.1)
[2021-03-05 21:08] LABS: TOTAL PROTEIN 7.4 GM/DL (6.4-8.2)
[2021-03-05 21:10] LABS: BILIRUBIN,TOTAL 0.3 MG/DL (0.1-1.0)
[2021-03-05 21:11] LABS: CREATININE SERUM 1.02 MG/DL (0.60-1.30)
[2021-03-05] MEDS ORDERED: HOLD METFORMIN - RECEIVED CONTRAST 20 ML VIAL IV SCH (21:15)
[2021-03-05] MEDS ORDERED: IOHEXOL 350 MG/ML 100 ML (OMNIPAQUE 350) VIAL IV ONE (21:15)
[2021-03-05] MEDS ORDERED: NS 100 ML (IVPB) BAG IV ONE (21:15)
--- NOTE | 2021-03-05 21:45 | Diagnostic Imaging Report ---
PROCEDURE: CT abdomen and pelvis with and without contrast. TECHNIQUE: Auto Exposure Controls were utilized during the CT exam to meet ALARA standards for radiation dose reduction. INDICATION: Inability to urinate. Lower abdominal pain, blood in the urine. No history of cancer. Previous cholecystectomy, hysterectomy, bladder surgery and spinal surgery. COMPARISON STUDY: There are no pertinent studies. FINDINGS: The lung bases are clear. Mild fatty metamorphosis of the liver is present with no focal abnormality. The spleen, pancreas, adrenal glands and kidneys are normal. The urinary bladder is decompressed. Uterus is absent. No ascites, free air or abnormal adenopathy is present. There is no hernia. No inflammatory or obstructive change is seen within the colon. Small bowel loops are nondistended. No inflammation is seen. Some degenerative change is present in the lumbar spine. IMPRESSION: 1. There is fatty liver. 2. Bladder is decompressed and cannot be well evaluated. 3. Mild degenerative change is present in the lumbar spine. Dictated by: Dictated on workstation # [id number]
[2021-03-05 21:57] VITALS: BP 122/97
[2021-03-06 10:58] LABS: BILIRUBIN,URINE 2+ (NEGATIVE)
== END 2021-03-05 21:57 | disposition home or self-care (01) ==
LOC: EDUNIT# 20:13 → ER 20:14
DX: N30.90 Cystitis, unspecified without hematuria (principal); I10 Essential (primary) hypertension
CPT/HCPCS: 36415; 74178; 80053; 81000; 85025; 87088

== ENCOUNTER 2022-08-31 08:38 | Emergency (ER) | payer OTHER ==
[~2022-08-31] VITALS: Ht 172.7 cm; Wt 121.8 kg
[~2022-08-31 08:38] MED LIST changes: +CEFU250T80 PO; +CYCL10TA25 PO; +GABA-490; +HYDR-3817; +LISI10TA25; +PRAZ1CAP2 PO; +TRAZ-227
[2022-08-31 09:02] LABS: BASOPHILS % (AUTO) 0 % (0-10); EOSINOPHILS # (AUTO) 0.1 10^3/uL (0.0-0.3); EOSINOPHILS % (AUTO) 1 % (0-10); HEMATOCRIT 43 % (35-52); LYMPHOCYTES # (AUTO) 2.6 10^3/uL (1.0-4.0); LYMPHOCYTES % (AUTO) 28 % (12-44); MEAN CORPUSCULAR HEMOGLOBIN 29 pg (25-34); MEAN CORPUSCULAR HGB CONC 33 g/dL (32-36); MEAN CORPUSCULAR VOLUME 87 fL (80-99); MEAN PLATELET VOLUME 10.4 fL (9.0-12.2); MONOCYTES # (AUTO) 0.6 10^3/uL (0.0-1.0); MONOCYTES % (AUTO) 7 % (0-12); NEUTROPHILS # (AUTO) 5.8 10^3/uL (1.8-7.8); NEUTROPHILS % (AUTO) 63 % (42-75); PLATELET COUNT 228 10^3/uL (130-400); WHITE BLOOD COUNT 9.2 10^3/uL (4.3-11.0)
[2022-08-31 09:11] LABS: CALCIUM 9.2 MG/DL (8.5-10.1); CREATININE SERUM 0.86 MG/DL (0.60-1.30); POTASSIUM 3.4 MMOL/L (3.6-5.0)
--- NOTE | 2022-08-31 09:26 | Diagnostic Imaging Report ---
CLINICAL INDICATION: Patient with left-sided incomplete facial droop. No headache. Gradual onset of symptoms. Stroke like symptoms. Exam: Axial CT scan of the brain without IV contrast with coronal and sagittal reformatted images. Auto Exposure Controls were utilized during the CT exam to meet ALARA standards for radiation dose reduction. Comparison: None Findings: There is no evidence of acute cerebral infarct, intracranial hemorrhage, or gross mass effect. The brain parenchymal volume appears appropriate for patient's age. There is normal martinez-white matter distinction. There is no significant midline shift or herniation. There is no evidence of hydrocephalus. The basal cisterns are unremarkable. The skull, extracranial soft tissue, and orbits are unremarkable. The paranasal sinuses are unremarkable. Temporal bones show no significant abnormality. Impression: Unremarkable CT scan of the brain. There is no dense vessel sign. Dictated by: Dictated on workstation # [id number]
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
[2022-08-31] MEDS ORDERED: PRD20T PO (10:07)
[2022-08-31] MEDS ORDERED: predniSONE 20 MG TAB PO ONE (10:15)
[2022-08-31 10:20] VITALS: BP 130/94
== END 2022-08-31 10:20 | disposition home or self-care (01) ==
LOC: EDUNIT# 08:38 → ER 08:41
DX: G51.0 Bell's palsy (principal); I10 Essential (primary) hypertension
CPT/HCPCS: 36415; 70450; 80048; 82947; 85025; 86141